=== PATIENT | female | born 1980 | race Hispanic/Latino ===

== ENCOUNTER 2017-01-31 02:02 | Observation (INO) | payer MEDICAID, OTHER ==
[2017-01-31 02:03] VITALS: BMI 23.0
[2017-01-31] MEDS ORDERED: Sodium Chloride 0.9% 1,000 ML IV STA (02:39)
--- NOTE | 2017-01-31 02:42 | ED PDOC ---
HPI: Abdomen Time Seen by Provider: 01/31/17 02:30 Chief Complaint (Nursing): Abdominal Pain Chief Complaint (Provider): abdominal pain History Per: Patient History/Exam Limitations: no limitations Onset/Duration Of Symptoms: Days (3) Current Symptoms Are (Timing): Still Present Location Of Pain/Discomfort: RUQ, RLQ Additional History Per: Patient Additional Complaint(s): 36 y/o female history of migraines, chronic back pain presents with right-sided abdominal pain x 3 days. Patient notes pain to have started in right lower back , and has since been traveling to right side of abdomen. Patient states she was seen at [facility] a few days ago for constipation and the onset of the right lower back pain; was told she may have pulled a muscle straining. Patient states she recently came off of using narcotics for chronic pain, and she has always had constipation as a result of chronic use, last BM yesterday. Patient admits to back pain with constipation, but states pain traveling to abdomen is new. Patient notes 3 episodes of bright red rectal bleeding after straining to have BMs in the last 3 days. Denies fever, nausea/vomiting, dysuria, hematuria, vaginal bleeding/discharge. Past Medical History Reviewed: Historical Data, Nursing Documentation, Vital Signs Vital Signs: Last Vital Signs Temp 98.7 F 01/31/17 02:19 Pulse 89 01/31/17 02:19 Resp 16 01/31/17 02:19 BP 106/66 01/31/17 02:19 Pulse Ox 100 01/31/17 23:44 - Medical History PMH: Asthma, Back Problems (L-Spine disk herniations x2), Fibromyalgia, Fractures (left foot), HTN, Hypothyroidism, Migraine, Chronic Pain (neck, back, right leg) Denies: Arthritis, CHF, COPD, Diabetes (Type II), Hepatitis, HIV, Hypercholesterolemia, Chronic Kidney Disease, Rheumatoid Arthritis, Seizures, Sexually Transmitted Disease - Surgical History Surgical History: Back Surgery (Cervical spine Diskectomy and fusion C5-6) - Family History Family History: States: Unknown Family Hx, MO (maternal grandparents had MO in their 60s), Hypertension - Immunization History Hx Tetanus Toxoid Vaccination: No Hx Influenza Vaccination: No Hx Pneumococcal Vaccination: No - Home Medications Home Medications: Ambulatory Orders Medication Instructions Recorded Topiramate [Topamax] 100 mg PO BID 11/03/16 Gabapentin [Neurontin] 600 mg PO TID #20 tablet 01/02/17 Buprenorphine HCl/Naloxone HCl 1 tab PO BID 01/28/17 [Suboxone 8 mg-2 mg Sl Film] Ibuprofen [Motrin] 600 mg PO Q6 PRN #30 tab 01/28/17 diaZEpam [Valium] 5 mg PO Q8 #20 tab 01/28/17 - Allergies Allergies/Adverse Reactions: Allergies Allergy/AdvReac Type Severity Reaction Status Date / Time clarithromycin [From Biaxin] Allergy NAUSEA Verified 01/28/17 15:45 Penicillins Allergy RASH Verified 01/28/17 15:45 sumatriptan [From Imitrex] AdvReac ANAPHYLAXIS Verified 01/28/17 15:45 sumatriptan succinate AdvReac ANAPHYLAXIS Verified 01/28/17 15:45 [From Imitrex] Review of Systems ROS Statement: Except As Marked, All Systems Reviewed And Found Negative Gastrointestinal: Positive for: Abdominal Pain Physical Exam - Reviewed Nursing Documentation Reviewed: Yes Vital Signs Reviewed: Yes - Physical Exam Appears: Positive for: Well, Non-toxic, No Acute Distress Head Exam: Positive for: ATRAUMATIC, NORMAL INSPECTION, NORMOCEPHALIC Skin: Positive for: Normal Color Eye Exam: Positive for: Normal appearance ENT: Positive for: Normal ENT Inspection Cardiovascular/Chest: Positive for: Regular Rate, Rhythm Respiratory: Positive for: Normal Breath Sounds Gastrointestinal/Abdominal: Positive for: Tenderness (ruq, rlq, right flank) Back: Positive for: R CVA Tenderness, Muscle Spasm (right lspine paraspinals). Negative for: Vertebral Tenderness, Decreased ROM Rectal: Positive for: Stool Is Heme: (neg), Other (exam chaperoned by Gayatri RICHARD) . Negative for: Blood Streaked Stool, Hemorrhoids Extremity: Positive for: Normal ROM Neurologic/Psych: Positive for: Alert, Oriented - Laboratory Results Result Diagrams: 01/31/17 03:05 01/31/17 03:05 - ECG O2 Sat by Pulse Oximetry: 100 - Progress ED Course And Treament: labs, ct abd/pelvis, IV fluids, IV toradol Patient asking nurse for Valium for her muscle spasm and for something for her migraine headache immediately after receiving Toradol injection; was advised to wait until Toradol takes effect. On re-eval, patient still with complaints of pain, rolling about stretcher. Of note, patient was here with her son (who was a patient) before registering herself; noted to be in no distress during that time. Patient looked up in [facility], was prescribed 2 week supply of Suboxone on 01/25. History of drug seeking behavior/dependence as per chart. Valium PO ordered. Patient advised no further pain medication will be given until CT resulted ED OBSERVATION Date of observation admission: 01/31/17 Time of observation admission: 05:00 - Observation admission statement Patient is being placed in observation because:: abdominal pain - Goals of Observation Goals of observation are:: obtain CT abd/pelvis - Progress Note Progress Note: 01/31/17 06:04 EXAM: CT Abdomen and Pelvis With Intravenous Contrast. CLINICAL HISTORY: 36 years old, female; Pain; Abdominal pain; Localized; Right; Prior surgery; Surgery date: 6+ months; Surgery type: ; Additional info: Right-sided abdominal pain TECHNIQUE: Axial computed tomography images of the abdomen and pelvis with intravenous contrast. This CT exam was performed using one or more of the following dose reduction techniques : automated exposure control, adjustment of the mA and/or kV according to patient size, and/ or use of iterative reconstruction technique. Coronal and sagittal reformatted images were created and reviewed. CONTRAST: 95 mL of [id number] administered intravenously. COMPARISON: CT - ABD PELVIS PO IV CONTRAST 10/26/2015 12:51:06 PM FINDINGS: Lower thorax: Minimal atelectasis. Probable small hiatal hernia. ABDOMEN: Liver: Unremarkable. No mass. Gallbladder and bile ducts: No calcified stones. No ductal dilation. Pancreas: No ductal dilation. No mass. Spleen: No splenomegaly. Adrenals: No mass. Kidneys and ureters: No mass. No hydronephrosis. Stomach and bowel: No definite mural thickening. No obstruction. Appendix: No findings to suggest acute appendicitis. PELVIS: Bladder: Unremarkable. Reproductive: 2.0 x 1.8 x 2.0 cm hypodense lesion within RIGHT ovary. Small follicle within LEFT ovary. ABDOMEN and PELVIS: Intraperitoneal space: Trace free fluid within pelvis. No free air. Bones/joints: No acute fracture. Soft tissues: Unremarkable. Vasculature: Unremarkable. No abdominal aortic aneurysm. Lymph nodes: No pathologically enlarged lymph nodes. IMPRESSION: 1. Probable RIGHT ovarian cyst. Consider ultrasound. 2. Incidental/non-acute findings are described above. Patient educated on findings, who is agreeable to have ultrasound at this time. TV u/s ordered Tramadol PO ordered for returning pain. Disposition - Clinical Impression Clinical Impression: Ovarian cyst, Fungal infection - Disposition Disposition: Transfer of Care Disposition Time: 06:12 Condition: STABLE Patient Signed Over To: Mina Hong Handoff Comments: pending u/s
[2017-01-31 02:47] VITALS: BP 106/66; PULSE 89; RESP 16; TEMP 98.7; O2SAT 100
[2017-01-31] MEDS ORDERED: Iohexol 240 (50 ml) PO ONE (02:47)
[2017-01-31 03:04] LABS: RBC URINE 4 /hpf (0-3); URINE BACTERIA RARE (<OCC); URINE BILIRUBIN NEGATIVE (NEGATIVE); URINE BLOOD NEGATIVE (NEGATIVE); URINE COLOR YELLOW (YELLOW); URINE GLUCOSE (UA) NEG (Normal); URINE KETONE TRACE mg/dL (NEGATIVE); URINE LEUKOCYTE ESTERASE NEG Leu/uL (Negative); URINE PROTEIN NEGATIVE (NEGATIVE); URINE UROBILINOGEN 0.2-1.0 mg/dL (0.2-1.0); WBC URINE 7 /hpf (0-5)
[2017-01-31 03:11] LABS: BASO # 0.1 K/uL (0.0-0.2); EOS # 0.4 K/uL (0.0-0.7); EOS % 6.5 % (0.0-4.0); HEMATOCRIT 35.5 % (34.0-47.0); LYMPH # 3.2 K/uL (1.0-4.3); MEAN CELL VOLUME 89.6 fl (81.0-99.0); MEAN CORPUSCULAR HEMOGLOBIN 29.9 pg (27.0-31.0); MEAN CORPUSCULAR HGB CONC 33.3 g/dL (33.0-37.0); MEAN PLATELET VOLUME 8.1 fl (7.2-11.7); MONO # 0.4 K/uL (0.0-0.8); MONO % 6.3 % (0.0-10.0); NEUT # 2.7 K/uL (1.8-7.0); NEUT % 39.2 % (50.0-75.0); RED CELL DISTRIBUTION WIDTH 14.2 % (11.5-14.5); WHITE BLOOD COUNT 6.9 K/uL (4.8-10.8)
[2017-01-31 03:13] LABS: CHLORIDE 107 mmol/L (98-107); SODIUM 145 mmol/l (132-148)
[2017-01-31 03:14] LABS: POTASSIUM 3.8 MMOL/L (3.6-5.0)
[2017-01-31 03:16] LABS: ALB/GLOB RATIO 1.4 (1.0-2.1); ALKALINE PHOSPHATASE 61 U/L (38-126); AST/SGOT 21 U/L (14-36); BILIRUBIN,TOTAL 0.2 mg/dl (0.2-1.3); BLOOD UREA NITROGEN 15 mg/dl (7-17); CARBON DIOXIDE 24 mmol/L (22-30); GFR AFRICAN-AMERICAN > 60; GLUCOSE,RANDOM 79 mg/dL (65-105); TOTAL PROTEIN 6.5 G/DL (6.3-8.2)
[2017-01-31 03:17] LABS: ALT/SGPT 14 U/L (9-52); CALCIUM 8.9 mg/dL (8.4-10.2)
[2017-01-31] MEDS ORDERED: Sodium Chloride 0.9% 50 ML IV ONE (04:55)
[2017-01-31] MEDS ORDERED: Iohexol 300 100 ML IJ ONE (04:55)
--- NOTE | 2017-01-31 05:56 | CT ---
EXAM: CT Abdomen and Pelvis With Intravenous Contrast. CLINICAL HISTORY: 36 years old, female; Pain; Abdominal pain; Localized; Right; Prior surgery; Surgery date: 6+ months; Surgery type: ; Additional info: Right-sided abdominal pain TECHNIQUE: Axial computed tomography images of the abdomen and pelvis with intravenous contrast. This CT exam was performed using one or more of the following dose reduction techniques: automated exposure control, adjustment of the mA and/or kV according to patient size, and/or use of iterative reconstruction technique. Coronal and sagittal reformatted images were created and reviewed. CONTRAST: 95 mL of [id number] administered intravenously. COMPARISON: CT - ABD PELVIS PO IV CONTRAST 10/26/2015 12:51:06 PM FINDINGS: Lower thorax: Minimal atelectasis. Probable small hiatal hernia. ABDOMEN: Liver: Unremarkable. No mass. Gallbladder and bile ducts: No calcified stones. No ductal dilation. Pancreas: No ductal dilation. No mass. Spleen: No splenomegaly. Adrenals: No mass. Kidneys and ureters: No mass. No hydronephrosis. Stomach and bowel: No definite mural thickening. No obstruction. Appendix: No findings to suggest acute appendicitis. PELVIS: Bladder: Unremarkable. Reproductive: 2.0 x 1.8 x 2.0 cm hypodense lesion within RIGHT ovary. Small follicle within LEFT ovary. ABDOMEN and PELVIS: Intraperitoneal space: Trace free fluid within pelvis. No free air. Bones/joints: No acute fracture. Soft tissues: Unremarkable. Vasculature: Unremarkable. No abdominal aortic aneurysm. Lymph nodes: No pathologically enlarged lymph nodes. IMPRESSION: 1. Probable RIGHT ovarian cyst. Consider ultrasound. 2. Incidental/non-acute findings are described above.
--- NOTE | 2017-01-31 06:24 | ED PDOC ---
- Laboratory Results Result Diagrams: 01/31/17 03:05 01/31/17 03:05 - ECG O2 Sat by Pulse Oximetry: 100 Medical Decision Making Medical Decision Making: Case endorsed from Caio Ramirez PA-C at 0600 pending US. Case endorsed to Dr. Christianson at 0700 pending US. Scribe Attestation: Documented by Arpita Covington acting as a scribe for Mina Hong MD. Provider Scribe Attestation: All medical record entries made by the Scribe were at my direction and personally dictated by me. I have reviewed the chart and agree that the record accurately reflects my personal performance of the history, physical exam, medical decision making, and the department course for this patient. I have also personally directed, reviewed, and agree with the discharge instructions and disposition. Disposition - Clinical Impression Clinical Impression: Ovarian cyst, Fungal infection - POA Present On Arrival: None - Disposition Disposition: Transfer of Care Disposition Time: 07:00 Condition: STABLE Patient Signed Over To: David Christianson Handoff Comments: pending US
--- NOTE | 2017-01-31 07:00 | ED PDOC ---
- Laboratory Results Result Diagrams: 01/31/17 03:05 01/31/17 03:05 - ECG O2 Sat by Pulse Oximetry: 100 Medical Decision Making Medical Decision Making: Time:0700 Patient signed out by Dr. Hong pending U/S Time: 0950 U/S results reviewed HISTORY: Right side pain, ovarian cyst on CT COMPARISON: None available. TECHNIQUE: Transvaginal pelvic ultrasound was performed. FINDINGS: UTERUS: Measures 9.6 x 5.9 x 4.5 cm. Anteverted and normal in size and appearance. No fibroid or other mass lesion seen. ENDOMETRIUM: Measures 5 mm in diameter. There is a 4 mm submucosal cyst in the anterior wall of the fundus. CERVIX: There are multiple nabothian cysts. RIGHT OVARY: Measures 3.2 x 3.0 x 2.3 cm. No solid mass. Normal flow. There is a 2.0 cm simple cyst. LEFT OVARY: Measures 2.1 x 1.9 x 1.8 cm. No solid mass. Normal flow. There is a 1.2 cm simple cyst. FREE FLUID: No significant free fluid noted. OTHER FINDINGS: None. IMPRESSION: 1. 2.0 cm simple cyst in the right ovary. 2. 4 mm submucosal cyst in the anterior wall of the fundus of the uterus. Scribe Attestation: Documented by Lauren Mead acting as a scribe for David Christianson MD, MD Scribe Attestation: All medical record entries made by the Scribe were at my direction and personally dictated by me. I have reviewed the chart and agree that the record accurately reflects my personal performance of the history, physical exam, medical decision making, and the department course for this patient. I have also personally directed, reviewed, and agree with the discharge instructions and disposition. Disposition - Clinical Impression Clinical Impression: Ovarian cyst, Fungal infection - POA Present On Arrival: None - Disposition Disposition: Routine/Home Disposition Time: 09:50 Condition: STABLE
--- NOTE | 2017-01-31 09:48 | US ---
HISTORY: Right side pain, ovarian cyst on CT COMPARISON: None available. TECHNIQUE: Transvaginal pelvic ultrasound was performed. FINDINGS: UTERUS: Measures 9.6 x 5.9 x 4.5 cm. Anteverted and normal in size and appearance. No fibroid or other mass lesion seen. ENDOMETRIUM: Measures 5 mm in diameter. There is a 4 mm submucosal cyst in the anterior wall of the fundus. CERVIX: There are multiple nabothian cysts. RIGHT OVARY: Measures 3.2 x 3.0 x 2.3 cm. No solid mass. Normal flow. There is a 2.0 cm simple cyst. LEFT OVARY: Measures 2.1 x 1.9 x 1.8 cm. No solid mass. Normal flow. There is a 1.2 cm simple cyst. FREE FLUID: No significant free fluid noted. OTHER FINDINGS: None. IMPRESSION: 1. 2.0 cm simple cyst in the right ovary. 2. 4 mm submucosal cyst in the anterior wall of the fundus of the uterus.
[2017-01-31] MEDS ORDERED: Fluconazole 150 MG TAB PO ONE (10:00)
== END 2017-01-31 09:56 | disposition home or self-care (01) ==
LOC: H.ER 02:02 → H.EROBSV 05:00
PROVIDERS: ADMIT Emergency Medicine; ATTEND Emergency Medicine
DX: N83.201 Unspecified ovarian cyst, right side (principal); B49 Unspecified mycosis; I10 Essential (primary) hypertension; J45.909 Unspecified asthma, uncomplicated; K59.03 Drug induced constipation; T40.605A Adverse effect of unspecified narcotics, initial encounter

== ENCOUNTER 2017-10-05 14:12 | Emergency (ER) | payer OTHER ==
[2017-10-05 14:12] VITALS: BMI 22.6
[2017-10-05 14:22] VITALS: BP 127/79; PULSE 84; RESP 16; TEMP 98; O2SAT 98
[2017-10-05] MEDS ORDERED: Sodium Chloride 0.9% 1,000 ML IV STA (14:35)
--- NOTE | 2017-10-05 14:44 | ED PDOC ---
HPI: Abdomen Time Seen by Provider: 10/05/17 14:24 Chief Complaint (Nursing): Abdominal Pain Chief Complaint (Provider): Abdominal Pain History Per: Patient History/Exam Limitations: no limitations Onset/Duration Of Symptoms: Days (x2) Current Symptoms Are (Timing): Still Present Additional Complaint(s): Mary Anne Seals is a 37 year old female that presents to the ED with a chief complaint of abdominal pain that she has been experiencing for the past few days. Patient reports that she has also had associated spasms in her extremities , for which she took a Valium. She denies any fever, nausea, vomiting, or genitourinary symptoms, and reports that her last bowel movement was today. Patient states that she typically has intermittent diarrhea and constipation. Of Note: No history of abdominal surgeries. Past Medical History Reviewed: Historical Data, Nursing Documentation, Vital Signs Vital Signs: Last Vital Signs Temp 98.0 F 10/05/17 14:21 Pulse 84 10/05/17 14:21 Resp 16 10/05/17 14:21 BP 127/79 10/05/17 14:21 Pulse Ox 98 10/05/17 14:48 - Medical History PMH: Asthma, Back Problems, Fibromyalgia, Fractures (left foot), HTN, Hypothyroidism, Migraine, Chronic Pain (neck, back, right leg) Denies: Arthritis, CHF, COPD, Diabetes, Hepatitis, HIV, Hypercholesterolemia , Chronic Kidney Disease, Rheumatoid Arthritis, Seizures, Sexually Transmitted Disease - Surgical History Surgical History: Back Surgery (Cervical spine Diskectomy and fusion C5-6) - Family History Family History: States: Unknown Family Hx, MA (maternal grandparents had MA in their 60s), Hypertension - Immunization History Hx Tetanus Toxoid Vaccination: No Hx Influenza Vaccination: No Hx Pneumococcal Vaccination: No - Home Medications Home Medications: Ambulatory Orders Medication Instructions Recorded Topiramate [Topamax] 100 mg PO BID 11/03/16 Gabapentin [Neurontin] 600 mg PO TID #20 tablet 01/02/17 Docusate [Colace] 100 mg PO BID PRN #24 cap 03/24/17 hydroCHLOROthiazide [Hydrodiuril] 1 tab PO DAILY 03/24/17 Lactulose 20 gm PO BID PRN #1 bottle 04/12/17 diaZEpam [Valium] 1 tab PO PRN PRN 07/25/17 oxyCODONE [oxycodone Hydrochloride] 10 mg PO TID 07/25/17 - Allergies Allergies/Adverse Reactions: Allergies Allergy/AdvReac Type Severity Reaction Status Date / Time clarithromycin [From Biaxin] Allergy NAUSEA Verified 10/05/17 14:19 Penicillins Allergy RASH Verified 10/05/17 14:19 sumatriptan [From Imitrex] AdvReac ANAPHYLAXIS Verified 10/05/17 14:19 sumatriptan succinate AdvReac ANAPHYLAXIS Verified 10/05/17 14:19 [From Imitrex] Review of Systems Constitutional: Negative for: Fever Gastrointestinal: Positive for: Abdominal Pain, Diarrhea, Constipation. Negative for: Nausea, Vomiting Genitourinary Female: Negative for: Dysuria, Frequency, Incontinence, Hematuria , Vaginal Discharge, Vaginal Bleeding Physical Exam - Reviewed Nursing Documentation Reviewed: Yes Vital Signs Reviewed: Yes - Physical Exam Appears: Positive for: Non-toxic, No Acute Distress Head Exam: Positive for: ATRAUMATIC, NORMOCEPHALIC Skin: Positive for: Normal Color, Warm Eye Exam: Positive for: Normal appearance, EOMI, PERRL Neck: Positive for: Normal, Supple Cardiovascular/Chest: Positive for: Regular Rate, Rhythm. Negative for: Murmur Respiratory: Positive for: Normal Breath Sounds. Negative for: Wheezing Gastrointestinal/Abdominal: Positive for: Tenderness (mild generalized TTP). Negative for: Normal Exam, Guarding, Rebound Back: Positive for: Normal Inspection. Negative for: L CVA Tenderness, R CVA Tenderness Extremity: Negative for: Normal ROM, Deformity, Swelling Neurologic/Psych: Positive for: Alert, Oriented. Negative for: Motor/Sensory Deficits - ECG O2 Sat by Pulse Oximetry: 98 (RA) Pulse Ox Interpretation: Normal Medical Decision Making Medical Decision Making: Impression: Abdominal Pain Plan: * CMP * CBC * Urine preg * Urine dip * Urine drug screen * Urinalysis * NaCl 1000 mLs at 1000 mls/hr * Bentyl 20 mg PO * Reevaluation Reviewed old charts, patient had CT Abd/Pelvis in March 2017, which was normal. 15:00 Patient signed out to Dr. Moreno pending ER workup, reassessment, and final ER disposition. Scribe Attestation: Documented by Meri Montelongo, acting as a scribe for Michelle Paulson MD. Provider Scribe Attestation: All medical record entries made by the Scribe were at my direction and personally dictated by me. I have reviewed the chart and agree that the record accurately reflects my personal performance of the history, physical exam, medical decision making, and the department course for this patient. I have also personally directed, reviewed, and agree with the discharge instructions and disposition. Disposition - Clinical Impression Clinical Impression: Abdominal pain - Disposition Disposition: Transfer of Care Disposition Time: 15:00 Condition: FAIR Forms: [employer] (Pashto) Patient Signed Over To: Tana Moreno
[2017-10-05 15:05] LABS: RBC URINE < 1 /hpf (0-3); URINE BILIRUBIN NEGATIVE (NEGATIVE); URINE BLOOD NEGATIVE (NEGATIVE); URINE COLOR STRAW (YELLOW); URINE GLUCOSE (UA) 50 mg/dL (Normal); URINE KETONE NEGATIVE (NEGATIVE); URINE LEUKOCYTE ESTERASE NEG Leu/uL (Negative); URINE PROTEIN NEGATIVE (NEGATIVE); URINE UROBILINOGEN 0.2-1.0 mg/dL (0.2-1.0); WBC URINE 1 /hpf (0-5)
--- NOTE | 2017-10-05 15:07 | ED PDOC ---
- Laboratory Results Result Diagrams: 10/05/17 15:00 10/05/17 15:00 - ECG O2 Sat by Pulse Oximetry: 98 (RA) Medical Decision Making Medical Decision Makin:00 Patient signed out to me by Dr. Paulson pending ER workup, reassessment, and final ER disposition. Labs unremarkable. Accession No. : [id number] Patient Name / ID : ELIJAH CARLTON / [id number] Exam Date : 10/05/2017 16:37:01 ( Approved ) Study Comment : Sex / Age : F / 37Y Creator : Charan Castellano MD Dictator : Charan Castellano MD Glass Handler : Passenger Rate Clerk : Charan Castellano MD Approver2 : Report Date : 10/05/2017 17:27:04 My Comment : HISTORY: abdominal pain h/o ovarian cyst COMPARISON: None available. TECHNIQUE: Transabdominal and transvaginal pelvic ultrasound was performed with longitudinal and transverse images submitted for interpretation. FINDINGS: UTERUS: Measures 7.9 x 4.5 x 3.3 cm. The uterus appears anteverted, normal in size and appearance. No fibroid or other mass lesion seen. ENDOMETRIUM: Measures 3.4 mm in diameter. Unremarkable. CERVIX: No cervical abnormality identified. RIGHT OVARY: Measures 3.4 x 4.6 x 2.4 cm. A 2.76 x 1.9 x 2.9 cm cysts is identified which appears simple but enlarges the right ovary mildly. No solid lesions identified.Normal flow. LEFT OVARY: Measures 2.6 x 2.0 x 1.1 cm. No solid mass. Normal flow. FREE FLUID: No significant free fluid noted. OTHER FINDINGS: None. IMPRESSION: A 2.8 cm simple cyst identified at the right ovary with exam otherwise unremarkable appearing. No suspicious left adnexal findings in the uterus and cervix as well as endometrium appear unremarkable. Accession No. : [id number] Patient Name / ID : ELIJAH CARLTON / [id number] Exam Date : 10/05/2017 16:46:27 ( Approved ) Study Comment : Sex / Age : F / 37Y Creator : Charan Castellano MD Dictator : Charan Castellano MD Glass Handler : Passenger Rate Clerk : Charan Castellano MD Approver2 : Report Date : 10/05/2017 17:29:41 My Comment : HISTORY: abdominal pain COMPARISON: None. TECHNIQUE: Sonographic evaluation of the abdomen. FINDINGS: LIVER: Measures 17.4 cm. Normal echogenicity of the liver parenchyma. The liver is borderline enlarged with a Carter's lobe extending anterior and inferior to the right kidney. GALLBLADDER: Unremarkable. No gallstones. COMMON BILE DUCT: Measures 4.4 mm. No stones. No dilatation. PANCREAS: Unremarkable as visualized. No mass. No ductal dilatation. RIGHT KIDNEY: Measures 9.5 x 4.3 x 4.4cm. Normal echogenicity. No calculus, mass, or hydronephrosis. LEFT KIDNEY: Measures 10.6 x 4.2 x 5.2cm. Normal echogenicity. No calculus, mass, or hydronephrosis. SPLEEN: Normal in size and contour. No mass. AORTA: No aneurysmal dilatation. IVC: Unremarkable. OTHER FINDINGS: None. IMPRESSION: Borderline hepatomegaly. No discrete mass or biliary tree dilatation associated. Remainder of the examination is unremarkable. DW pt findings and plan of care. Pt to f/u with protein scientist. Scribe Attestation: Documented by Meri Montelongo, acting as a scribe for Tana Moreno MD. Provider Scribe Attestation: All medical record entries made by the Scribe were at my direction and personally dictated by me. I have reviewed the chart and agree that the record accurately reflects my personal performance of the history, physical exam, medical decision making, and the department course for this patient. I have also personally directed, reviewed, and agree with the discharge instructions and disposition. Disposition Counseled Patient/Family Regarding: Studies Performed, Diagnosis, Need For Followup, Rx Given - Clinical Impression Clinical Impression: Abdominal pain, Ovarian cyst - POA Present On Arrival: None - Disposition Referrals: [facility] [Outside] Disposition: Routine/Home Disposition Time: 18:04 Condition: FAIR Forms: [facility] (Lithuanian)
[2017-10-05 15:09] LABS: BASO # 0.1 K/uL (0.0-0.2); BASO % 0.9 % (0.0-2.0); EOS % 0.4 % (0.0-4.0); HEMATOCRIT 41.9 % (34.0-47.0); LYMPH # 1.9 K/uL (1.0-4.3); LYMPH % 19.3 % (20.0-40.0); MEAN CELL VOLUME 94.1 fl (81.0-99.0); MEAN CORPUSCULAR HEMOGLOBIN 30.7 pg (27.0-31.0); MEAN CORPUSCULAR HGB CONC 32.6 g/dL (33.0-37.0); MEAN PLATELET VOLUME 7.7 fl (7.2-11.7); MONO # 0.6 K/uL (0.0-0.8); MONO % 6.3 % (0.0-10.0); NEUT # 7.1 K/uL (1.8-7.0); NEUT % 73.1 % (50.0-75.0); WHITE BLOOD COUNT 9.7 K/uL (4.8-10.8)
[2017-10-05 15:18] LABS: ALB/GLOB RATIO 1.5 (1.0-2.1); ALKALINE PHOSPHATASE 51 U/L (38-126); ALT/SGPT 23 U/L (9-52); AST/SGOT 20 U/L (14-36); BILIRUBIN,TOTAL 0.4 mg/dl (0.2-1.3); BLOOD UREA NITROGEN 19 mg/dl (7-17); CALCIUM 9.1 mg/dL (8.4-10.2); CARBON DIOXIDE 24 mmol/L (22-30); CHLORIDE 110 mmol/L (98-107); GFR AFRICAN-AMERICAN > 60; GLUCOSE,RANDOM 113 mg/dL (65-105); POTASSIUM 3.7 MMOL/L (3.6-5.0); SODIUM 144 mmol/l (132-148); TOTAL PROTEIN 7.1 G/DL (6.3-8.2)
--- NOTE | 2017-10-05 17:28 | US ---
HISTORY: abdominal pain h/o ovarian cyst COMPARISON: None available. TECHNIQUE: Transabdominal and transvaginal pelvic ultrasound was performed with longitudinal and transverse images submitted for interpretation. FINDINGS: UTERUS: Measures 7.9 x 4.5 x 3.3 cm. The uterus appears anteverted, normal in size and appearance. No fibroid or other mass lesion seen. ENDOMETRIUM: Measures 3.4 mm in diameter. Unremarkable. CERVIX: No cervical abnormality identified. RIGHT OVARY: Measures 3.4 x 4.6 x 2.4 cm. A 2.76 x 1.9 x 2.9 cm cysts is identified which appears simple but enlarges the right ovary mildly. No solid lesions identified.Normal flow. LEFT OVARY: Measures 2.6 x 2.0 x 1.1 cm. No solid mass. Normal flow. FREE FLUID: No significant free fluid noted. OTHER FINDINGS: None. IMPRESSION: A 2.8 cm simple cyst identified at the right ovary with exam otherwise unremarkable appearing. No suspicious left adnexal findings in the uterus and cervix as well as endometrium appear unremarkable.
--- NOTE | 2017-10-05 17:31 | US ---
HISTORY: abdominal pain COMPARISON: None. TECHNIQUE: Sonographic evaluation of the abdomen. FINDINGS: LIVER: Measures 17.4 cm. Normal echogenicity of the liver parenchyma. The liver is borderline enlarged with a Carter's lobe extending anterior and inferior to the right kidney. GALLBLADDER: Unremarkable. No gallstones. COMMON BILE DUCT: Measures 4.4 mm. No stones. No dilatation. PANCREAS: Unremarkable as visualized. No mass. No ductal dilatation. RIGHT KIDNEY: Measures 9.5 x 4.3 x 4.4cm. Normal echogenicity. No calculus, mass, or hydronephrosis. LEFT KIDNEY: Measures 10.6 x 4.2 x 5.2cm. Normal echogenicity. No calculus, mass, or hydronephrosis. SPLEEN: Normal in size and contour. No mass. AORTA: No aneurysmal dilatation. IVC: Unremarkable. OTHER FINDINGS: None. IMPRESSION: Borderline hepatomegaly. No discrete mass or biliary tree dilatation associated. Remainder of the examination is unremarkable.
== END 2017-10-05 19:14 | disposition home or self-care (01) ==
LOC: H.ER 14:12
DX: N83.201 Unspecified ovarian cyst, right side (principal)
CPT/HCPCS: 76700; 76856; 80053; 80324; 80345; 80346; 80349; 80353; 80358; 80361; 81003; 81025; 83992; 85025; 99283; J7040

== ENCOUNTER 2017-12-02 20:51 | Emergency (ER) | payer OTHER ==
[2017-12-02 20:52] VITALS: BMI 22.6
[2017-12-02 21:10] VITALS: O2SAT 99
[2017-12-02] MEDS ORDERED: Lactated Ringer's 1,000 ML IV STA (22:17)
--- NOTE | 2017-12-02 22:26 | ED PDOC ---
Syncope/Near Syncope/Dizziness Time Seen by Provider: 12/02/17 21:56 Chief Complaint (Nursing): Dizziness/Lightheaded Chief Complaint (Provider): Dizziness/Lightheaded History Per: Patient History/Exam Limitations: no limitations Onset/Duration Of Symptoms: Days (x2) Current Symptoms Are (Timing): Still Present Additional Complaint(s): 37 year old female who presents to the emergency department with a complaint of dizziness associated with frontal headache, facial tingling sensation, right ear fullness, imbalance exasperated with walking, nausea, abdominal pain, constipation and seeing floaters bilaterally ongoing since last night. Denied any hearing loss, vomiting, diarrhea, fever, chills, cough or focal weakness. PMD: Renaldo Kiran MD Past Medical History Reviewed: Historical Data, Nursing Documentation, Vital Signs Vital Signs: Last Vital Signs Temp 98.0 F 12/02/17 21:06 Pulse 71 12/02/17 21:06 Resp 18 12/02/17 21:06 BP 118/83 12/02/17 21:06 Pulse Ox 99 12/02/17 21:06 - Medical History PMH: Asthma, Back Problems, Fibromyalgia, Fractures (left foot), HTN, Hypothyroidism, Migraine, Chronic Pain (neck, back, right leg) Denies: Arthritis, CHF, COPD, Diabetes, Hepatitis, HIV, Hypercholesterolemia , Chronic Kidney Disease, Rheumatoid Arthritis, Seizures, Sexually Transmitted Disease - Surgical History Surgical History: Back Surgery (Cervical spine Diskectomy and fusion C5-6) - Family History Family History: States: Unknown Family Hx, [place] (maternal grandparents had [place] in their 60s), Hypertension - Social History Current smoker - smoking cessation education provided: Yes Alcohol: None Drugs: Denies - Immunization History Hx Tetanus Toxoid Vaccination: No Hx Influenza Vaccination: No Hx Pneumococcal Vaccination: No - Home Medications Home Medications: Ambulatory Orders Medication Instructions Recorded Topiramate [Topamax] 100 mg PO BID 11/03/16 Gabapentin [Neurontin] 600 mg PO TID #20 tablet 01/02/17 Docusate [Colace] 100 mg PO BID PRN #24 cap 03/24/17 hydroCHLOROthiazide [Hydrodiuril] 1 tab PO DAILY 03/24/17 Lactulose 20 gm PO BID PRN #1 bottle 04/12/17 diaZEpam [Valium] 1 tab PO PRN PRN 07/25/17 oxyCODONE [oxycodone Hydrochloride] 10 mg PO TID 07/25/17 Naproxen [Naprosyn] 1 tab PO BID PRN #30 tab 10/05/17 - Allergies Allergies/Adverse Reactions: Allergies Allergy/AdvReac Type Severity Reaction Status Date / Time clarithromycin [From Biaxin] Allergy NAUSEA Verified 12/02/17 21:10 Penicillins Allergy RASH Verified 12/02/17 21:10 sumatriptan [From Imitrex] AdvReac ANAPHYLAXIS Verified 12/02/17 21:10 sumatriptan succinate AdvReac ANAPHYLAXIS Verified 12/02/17 21:10 [From Imitrex] Review of Systems ROS Statement: Except As Marked, All Systems Reviewed And Found Negative Constitutional: Negative for: Fever, Chills Eyes: Positive for: Vision Change (floaters bilaterally) ENT: Positive for: Ear Pain (right-sided fullness). Negative for: Other ( bilateral hearing loss) Respiratory: Negative for: Cough Gastrointestinal: Positive for: Nausea, Abdominal Pain, Constipation (chronic). Negative for: Vomiting, Diarrhea Neurological: Positive for: Incoordination (inbalance), Headache (frontal), Dizziness, Other (facial paresthesia). Negative for: Weakness (focal) Physical Exam - Reviewed Nursing Documentation Reviewed: Yes Vital Signs Reviewed: Yes - Physical Exam Appears: Positive for: Non-toxic, In Acute Distress (tired appearing, mild painful distress) Head Exam: Positive for: ATRAUMATIC, NORMOCEPHALIC Skin: Positive for: Warm, Dry Eye Exam: Positive for: EOMI, PERRL ENT: Positive for: TM Is/Are (clear bilaterally). Negative for: Pharyngeal Erythema, Tonsillar Exudate Neck: Positive for: Painless ROM, Supple Cardiovascular/Chest: Positive for: Regular Rate, Rhythm, Chest Non Tender. Negative for: Murmur Respiratory: Positive for: Normal Breath Sounds. Negative for: Respiratory Distress Gastrointestinal/Abdominal: Positive for: Soft, Tenderness (mild LLQ) Back: Positive for: Normal Inspection. Negative for: Decreased ROM Extremity: Positive for: Normal ROM. Negative for: Deformity Lymphatic: Negative for: Adenopathy Neurologic/Psych: Positive for: Alert, Oriented (x3), Other ([place] Hallpike testing increases symptoms). Negative for: Motor/Sensory Deficits - Laboratory Results Result Diagrams: 12/02/17 22:29 12/02/17 22:29 - ECG O2 Sat by Pulse Oximetry: 99 (RA) Pulse Ox Interpretation: Normal Medical Decision Making Medical Decision Making: Initial Impression: Dizziness Differential Diagnosis: Vertigo; electrolyte abnormality; dehydration; constipation; migraine Initial Plan: * EKG * CMP * Drug screen, urine * Lipase * Magnesium * Phosphorous * TSH * Urine * Urine dipstick * CBC * Xray obstructive series * Antivert 50mg PO * Lactated Ringers 1,000ml IV per 150mls/hr * Zofran inj 8mg IV * Xray hip (right) Time: 00:00 --RIGHT hip xray: No acute abnormalities. --Labs unremarkable. On reevaluation pt reports dizziness slightly better, but headache persists --Patient endorsed to Dr. Hong pending reevaluation. Scribe Attestation: Documented by Carmelina Sommer and Tony Taveras, acting as a scribe for Tana Moreno MD. Provider Scribe Attestation: All medical record entries made by the Scribe were at my direction and personally dictated by me. I have reviewed the chart and agree that the record accurately reflects my personal performance of the history, physical exam, medical decision making, and the department course for this patient. I have also personally directed, reviewed, and agree with the discharge instructions and disposition. Disposition - Clinical Impression Clinical Impression: Dizziness, Migraine - Patient ED Disposition Is Patient to be Admitted: Transfer of Care - Disposition Disposition: Transfer of Care Disposition Time: 00:00 Condition: STABLE Patient Signed Over To: Mina Hong Handoff Comments: pending reeval
[2017-12-02 22:34] LABS: BASO # 0.1 K/uL (0.0-0.2); EOS # 0.6 K/uL (0.0-0.7); EOS % 7.9 % (0.0-4.0); HEMOGLOBIN 14.2 g/dL (12.0-16.0); LYMPH # 3.2 K/uL (1.0-4.3); LYMPH % 42.7 % (20.0-40.0); MEAN CELL VOLUME 94.9 fl (81.0-99.0); MEAN CORPUSCULAR HEMOGLOBIN 31.4 pg (27.0-31.0); MEAN CORPUSCULAR HGB CONC 33.1 g/dL (33.0-37.0); MONO # 0.5 K/uL (0.0-0.8); NEUT # 3.1 K/uL (1.8-7.0); NEUT % 41.4 % (50.0-75.0); NRBC % 0.3 % (0.0-0.0); RBC 4.52 Mil/uL (3.80-5.20); RED CELL DISTRIBUTION WIDTH 14.1 % (11.5-14.5); WHITE BLOOD COUNT 7.6 K/uL (4.8-10.8)
[2017-12-02 22:48] LABS: BARBITURATES, UR NEGATIVE (NEGATIVE); PHENCYCLIDINE, UR NEGATIVE (NEGATIVE)
[2017-12-02 23:17] LABS: ALB/GLOB RATIO 1.5 (1.0-2.1); ALBUMIN 4.5 g/dL (3.5-5.0); ALT/SGPT 19 U/L (9-52); AST/SGOT 25 U/L (14-36); BENZODIAZEPINES, UR POSITIVE (NEGATIVE); BLOOD UREA NITROGEN 12 mg/dl (7-17); CALCIUM 9.4 mg/dL (8.4-10.2); GFR AFRICAN-AMERICAN > 60; GFR NON-AFRICAN AMERICAN > 60; LIPASE 37 U/L (23-300); MAGNESIUM 2.2 MG/DL (1.6-2.3); OPIATES, UR POSITIVE (NEGATIVE)
[2017-12-02] MEDS ORDERED: DiphenhydrAMINE 50 mg/ml Inj IVP STA (23:51)
--- NOTE | 2017-12-03 00:31 | ED PDOC ---
- Laboratory Results Result Diagrams: 12/02/17 22:29 12/02/17 22:29 - ECG O2 Sat by Pulse Oximetry: 99 (RA) Medical Decision Making Medical Decision Making: Time: 00:00 --Patient signed over to me by Dr. Moreno pending reevaluation. Time: 01:15 --Upon provider evaluation patient reports improvement of symptoms, is medically stable, and requires no further treatment in the ED at this time. Counseling was provided and all questions were answered regarding diagnosis and need for follow up with PMD. There is agreement to discharge plan. Return if symptoms persist or worsen. Scribe Attestation: Documented by Tony Taveras, acting as a scribe for Mina Hong MD. Provider Scribe Attestation: All medical record entries made by the Scribe were at my direction and personally dictated by me. I have reviewed the chart and agree that the record accurately reflects my personal performance of the history, physical exam, medical decision making, and the department course for this patient. I have also personally directed, reviewed, and agree with the discharge instructions and disposition. Disposition Counseled Patient/Family Regarding: Studies Performed, Diagnosis, Need For Followup - Clinical Impression Clinical Impression: Dizziness, Migraine - POA Present On Arrival: None - Disposition Disposition: Routine/Home Disposition Time: :15 Condition: STABLE Instructions: Migraine Headache (ED) Forms: [employer] (Portuguese)
[2017-12-03] MEDS ORDERED: Promethazine 25 MG in Sodium Chloride 0.9% 50 ML IV ONE (00:45)
[2017-12-03 01:24] VITALS: BP 110/74; PULSE 75; RESP 16; TEMP 98.4
--- NOTE | 2017-12-03 09:51 | RAD ---
PROCEDURE: Right Hip Radiographs. HISTORY: hip pain COMPARISON: CT scan of the abdomen pelvis dated 01/31/2017. FINDINGS: BONES: Normal. No fracture. JOINTS: Normal. SOFT TISSUES: Normal. OTHER FINDINGS: None. IMPRESSION: Normal radiographs of right hip.
--- NOTE | 2017-12-03 09:54 | RAD ---
PROCEDURE: Radiographs of the chest and abdomen (obstructive series) HISTORY: abd pain r/o sbo COMPARISON: CT scan of the abdomen and pelvis dated 01/31/2017 ; chest radiograph dated 12/13/2016. TECHNIQUE: AP radiograph of the chest, with upright and supine radiographs of the abdomen. FINDINGS: CHEST: Lungs: Clear. Cardiovascular: Normal size heart. No pulmonary vascular congestion. Pleura: No pleural fluid. No pneumothorax. Other findings: None. ABDOMEN AND PELVIS: Bowel: Unremarkable bowel gas pattern. No evidence of mechanical obstruction. Free air: None. Bones: Unremarkable. Other findings: None. IMPRESSION: Unremarkable radiographs of chest and abdomen. No evidence of mechanical bowel obstruction.
--- NOTE | 2017-12-03 21:48 | CARD ---
APPROVED REPORT EKG Measurement Heart [id number] <Conclusion> Sinus bradycardia Otherwise normal ECG
== END 2017-12-03 00:50 | disposition home or self-care (01) ==
LOC: H.ER 20:51
DX: G43.909 Migraine, unspecified, not intractable, without status migrainosus (principal); R20.2 Paresthesia of skin; E03.9 Hypothyroidism, unspecified; I10 Essential (primary) hypertension; M79.7 Fibromyalgia; G89.29 Other chronic pain; Z88.0 Allergy status to penicillin; J45.909 Unspecified asthma, uncomplicated
CPT/HCPCS: 73502; 74022; 80053; 80324; 80345; 80346; 80349; 80353; 80358; 80361; 81025; 83690; 83735; 83992; 84100; 84443; 85025; 93005; 96374; 96375; 99284; J1200; J1885; J2405; J2550; J7120

== ENCOUNTER 2017-12-12 18:39 | Emergency (ER) | payer OTHER ==
[2017-12-12 18:40] VITALS: BMI 22.6
[2017-12-12 18:58] VITALS: BP 130/77; PULSE 60; RESP 18; TEMP 98.4; O2SAT 99
[2017-12-12] MEDS ORDERED: DiphenhydrAMINE 50 mg/ml Inj IV STA (20:12)
[2017-12-12 20:55] LABS: BASO # 0.1 K/uL (0.0-0.2); BASO % 0.8 % (0.0-2.0); EOS # 0.2 K/uL (0.0-0.7); EOS % 1.4 % (0.0-4.0); LYMPH # 3.5 K/uL (1.0-4.3); LYMPH % 27.8 % (20.0-40.0); MEAN CELL VOLUME 94.5 fl (81.0-99.0); MEAN CORPUSCULAR HEMOGLOBIN 30.8 pg (27.0-31.0); MEAN CORPUSCULAR HGB CONC 32.6 g/dL (33.0-37.0); MEAN PLATELET VOLUME 7.6 fl (7.2-11.7); MONO # 0.9 K/uL (0.0-0.8); MONO % 6.8 % (0.0-10.0); NEUT % 63.2 % (50.0-75.0); NRBC % 0.1 % (0.0-0.0); RBC 4.24 Mil/uL (3.80-5.20); RED CELL DISTRIBUTION WIDTH 13.4 % (11.5-14.5); WHITE BLOOD COUNT 12.7 K/uL (4.8-10.8)
[2017-12-12] MEDS ORDERED: DiphenhydrAMINE 50 mg/ml Inj ONE (20:58)
[2017-12-12 21:09] LABS: BLOOD UREA NITROGEN 24 mg/dl (7-17); CALCIUM 9.3 mg/dL (8.4-10.2); GFR AFRICAN-AMERICAN > 60; GFR NON-AFRICAN AMERICAN > 60
[2017-12-12 21:15] LABS: SQUAMOUS EPITHIAL 19 /hpf (0-5); URINE BACTERIA RARE (<OCC); URINE BILIRUBIN NEGATIVE (NEGATIVE); URINE BLOOD NEGATIVE (NEGATIVE); URINE CLARITY CLOUDY (Clear); URINE COLOR YELLOW (YELLOW); URINE GLUCOSE (UA) NEG (Normal); URINE LEUKOCYTE ESTERASE NEG Leu/uL (Negative); URINE NITRATE NEGATIVE (NEGATIVE); URINE PROTEIN NEGATIVE (NEGATIVE); URINE UROBILINOGEN 0.2-1.0 mg/dL (0.2-1.0)
--- NOTE | 2017-12-12 22:02 | ED PDOC ---
HPI: General Adult Time Seen by Provider: 12/12/17 19:28 Chief Complaint (Nursing): Chest Pain Chief Complaint (Provider): Neck Pain History Per: Patient History/Exam Limitations: no limitations Onset/Duration Of Symptoms: Days (x1 week) Current Symptoms Are (Timing): Still Present Additional Complaint(s): 37 year old female with a past medical history of chronic neck and back pain, migraines, cervical effusion (2014), and HTN, who presents to the ED complaining of right arm numbness and tingling and neck pain x1 week. Reports that she's recently had right sided neck pain that radiates to her arm. Also reports that she's been awoken at night by a spasm sensation of her right arm at times. States she's taking medication for pain management as prescribed by Dr. Barrera in [place]. Reports aking Oxycodone 3 times a day, Amitriptyline, Hydrochlorothiazide, and Topamax. Reports recently being started on Valium for spasms, but denies improvement of her symptoms. PMD: Renaldo Kiran Past Medical History Vital Signs: Last Vital Signs Temp 98.4 F 12/12/17 18:55 Pulse 60 12/12/17 18:55 Resp 18 12/12/17 18:55 BP 130/77 12/12/17 18:55 Pulse Ox 99 12/12/17 22:08 - Medical History PMH: Asthma, Back Problems, Fibromyalgia, Fractures (left foot), HTN, Hypothyroidism, Migraine, Chronic Pain (neck, back, right leg) Denies: Arthritis, CHF, COPD, Diabetes, Hepatitis, HIV, Hypercholesterolemia , Chronic Kidney Disease, Rheumatoid Arthritis, Seizures, Sexually Transmitted Disease - Surgical History Surgical History: Back Surgery (Cervical spine Diskectomy and fusion C5-6) - Family History Family History: States: Unknown Family Hx, [place] (maternal grandparents had [place] in their 60s), Hypertension - Social History Current smoker - smoking cessation education provided: No Alcohol: None Drugs: Denies - Immunization History Hx Tetanus Toxoid Vaccination: No Hx Influenza Vaccination: No Hx Pneumococcal Vaccination: No - Home Medications Home Medications: Ambulatory Orders Medication Instructions Recorded Topiramate [Topamax] 100 mg PO BID 11/03/16 Gabapentin [Neurontin] 600 mg PO TID #20 tablet 01/02/17 Docusate [Colace] 100 mg PO BID PRN #24 cap 03/24/17 hydroCHLOROthiazide [Hydrodiuril] 1 tab PO DAILY 03/24/17 Lactulose 20 gm PO BID PRN #1 bottle 04/12/17 diaZEpam [Valium] 1 tab PO PRN PRN 07/25/17 oxyCODONE [oxycodone Hydrochloride] 10 mg PO TID 07/25/17 Naproxen [Naprosyn] 1 tab PO BID PRN #30 tab 10/05/17 - Allergies Allergies/Adverse Reactions: Allergies Allergy/AdvReac Type Severity Reaction Status Date / Time clarithromycin [From Biaxin] Allergy NAUSEA Verified 12/12/17 18:55 Penicillins Allergy RASH Verified 12/12/17 18:55 sumatriptan [From Imitrex] AdvReac ANAPHYLAXIS Verified 12/12/17 18:55 sumatriptan succinate AdvReac ANAPHYLAXIS Verified 12/12/17 18:55 [From Imitrex] Review of Systems ROS Statement: Except As Marked, All Systems Reviewed And Found Negative (as per HPI) Musculoskeletal: Positive for: Neck Pain, Arm Pain (right) Neurological: Positive for: Numbness Physical Exam - Reviewed Nursing Documentation Reviewed: Yes Vital Signs Reviewed: Yes - Physical Exam Appears: Positive for: Non-toxic, No Acute Distress Head Exam: Positive for: ATRAUMATIC, NORMAL INSPECTION, NORMOCEPHALIC Skin: Positive for: Normal Color, Warm, Dry. Negative for: Rash Eye Exam: Positive for: Normal appearance, EOMI, PERRL Neck: Positive for: Normal, Painless ROM, Supple Cardiovascular/Chest: Positive for: Regular Rate, Rhythm. Negative for: Murmur Respiratory: Positive for: Normal Breath Sounds. Negative for: Respiratory Distress Gastrointestinal/Abdominal: Positive for: Normal Exam, Bowel Sounds, Soft. Negative for: Tenderness Back: Positive for: Normal Inspection. Negative for: L CVA Tenderness, R CVA Tenderness, Vertebral Tenderness Extremity: Positive for: Normal ROM. Negative for: Pedal Edema, Deformity Neurologic/Psych: Positive for: Alert, Oriented (x3). Negative for: Motor/ Sensory Deficits - Laboratory Results Result Diagrams: 12/12/17 20:46 12/12/17 20:46 - ECG O2 Sat by Pulse Oximetry: 99 (RA) Pulse Ox Interpretation: Normal Medical Decision Making Medical Decision Making: Time: 20:08 Initial Impression: 37 y/o female with radicular neuropathic pain in setting of previous circular disk fusion Initial Plan: --CT Cervical Spine w/o contrast --BMP --Urine dipstick --CBC w/ differential --Benadryl 25 mg IV --Phenergan 25 mg IV --Heplock insertion --Urinalysis --Reevaluation Time: 21:25 --Flexeril 10 mg PO --Reevaluation Time: 00:[address] FINDINGS: Vertebrae: There is maintenance of the cervical lordosis. There is no prevertebral soft tissue swelling. There are no fractures. There are postsurgical changes of anterior fusion C5/C6. There is an anterior plate and screws. There is a cage in the C5-C6 disc space. There is streak artifact from hardware. There are early degenerative changes C3-C4, unchanged with minimal anterolisthesis C3 on C4. There is continued mild retrolisthesis C6 on C7. There are degenerative changes C6-C7. There is mild posterior disc space narrowing at all levels. Facet joints align anatomically. Spinous processes align in the expected fashion. Bone mineralization is normal. Discs/spinal canal/neural foramina: See above. Soft tissues: See above. Thyroid: Thyroid is only partially imaged. Lung apices: Lung apices are clear. IMPRESSION: Anterior fusion C5/C6 without instrument failure; mild degenerative change; no fracture Patient was informed of benign findings on imaging. Was encouraged to follow up with pain management. Diagnosis is chronic neck pain and cervical radiculopathy. Scribe Attestation: Documented by Tony Taveras, acting as a scribe for Mina Hong MD. Provider Scribe Attestation: All medical record entries made by the Scribe were at my direction and personally dictated by me. I have reviewed the chart and agree that the record accurately reflects my personal performance of the history, physical exam, medical decision making, and the department course for this patient. I have also personally directed, reviewed, and agree with the discharge instructions and disposition. Disposition - Clinical Impression Clinical Impression: Chronic neck and back pain, Radiculopathy - Patient ED Disposition Is Patient to be Admitted: No - Disposition Disposition: Routine/Home Disposition Time: 00:54 Condition: STABLE Additional Instructions: Please follow up with you pain management provider and primary provider in 1-2 days Continue all medications as prescribed Instructions: Chronic Pain (ED), Cervical Radiculopathy (ED) Forms: [employer] (Emirati)
--- NOTE | 2017-12-13 00:34 | CT ---
EXAM: CT Cervical Spine Without Intravenous Contrast EXAM DATE/TIME: 12/12/2017 8:08 PM CLINICAL HISTORY: 37 years old, female; Pain; Neck pain; Prior surgery; Surgery date: 6+ months; Surgery type: Cervical fusion; Additional info: Neck pain; HX cervical fusion TECHNIQUE: Axial computed tomography images of the cervical spine without intravenous contrast. All CT scans at this facility use one or more dose reduction techniques, viz.: automated exposure control; ma/kV adjustment per patient size (including targeted exams where dose is matched to indication; i.e. head); or iterative reconstruction technique. Coronal and sagittal reformatted images were created and reviewed. COMPARISON: CT - CERVICAL SPINE W/O CONTRAST 2017-01-02 17:48 FINDINGS: Vertebrae: There is maintenance of the cervical lordosis. There is no prevertebral soft tissue swelling. There are no fractures. There are postsurgical changes of anterior fusion C5/C6. There is an anterior plate and screws. There is a cage in the C5-C6 disc space. There is streak artifact from hardware. There are early degenerative changes C3-C4, unchanged with minimal anterolisthesis C3 on C4. There is continued mild retrolisthesis C6 on C7. There are degenerative changes C6-C7. There is mild posterior disc space narrowing at all levels. Facet joints align anatomically. Spinous processes align in the expected fashion. Bone mineralization is normal. Discs/spinal canal/neural foramina: See above. Soft tissues: See above. Thyroid: Thyroid is only partially imaged. Lung apices: Lung apices are clear. IMPRESSION: Anterior fusion C5/C6 without instrument failure; mild degenerative change; no fracture
--- NOTE | 2017-12-13 18:12 | CARD ---
APPROVED REPORT EKG Measurement Heart [id number] <Conclusion> Normal sinus rhythm Normal ECG
== END 2017-12-13 02:11 | disposition home or self-care (01) ==
LOC: H.ER 18:39
DX: R07.89 Other chest pain (principal); M54.12 Radiculopathy, cervical region; E03.9 Hypothyroidism, unspecified; G89.29 Other chronic pain; I10 Essential (primary) hypertension; J45.909 Unspecified asthma, uncomplicated; M79.7 Fibromyalgia; Z88.0 Allergy status to penicillin; Z98.1 Arthrodesis status
CPT/HCPCS: 72125; 80048; 81003; 81025; 85025; 93005; 96374; 99282; J1200; J1885; J2550

== ENCOUNTER 2018-01-11 21:20 | Emergency (ER) | payer OTHER ==
[2018-01-11 21:20] VITALS: BMI 22.6
[2018-01-11 21:56] VITALS: BP 125/87; PULSE 90; RESP 18; TEMP 98.4; O2SAT 100
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
--- NOTE | 2018-01-12 08:54 | RAD ---
PROCEDURE: Cervical Spine Radiographs. HISTORY: Pain. COMPARISON: Cervical spine series dated 11/03/2016 and 12/13/2016. FINDINGS: BONES: Prior C5-6 spinal fusion hardware unchanged in position. Alignment maintained. No interval fracture. Dens Intact. DISC SPACES: Limited spondylosis is developing at C3-4 and C6-7. SOFT TISSUES: Normal. No prevertebral soft tissue swelling. OTHER FINDINGS: None. IMPRESSION: Stable C5-6 fusion. No interval fracture or definitive spondylolisthesis appreciable. Limited interval spondylosis as described above.
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
--- NOTE | 2018-01-12 08:57 | RAD ---
PROCEDURE: Radiographs of the Lumbar Spine. HISTORY: COMPARISON: No prior. FINDINGS: BONES: Normal alignment. No listhesis. No fracture. 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 Clinically correlate. Remaining disc interspaces are normal in height. OTHER FINDINGS: None. IMPRESSION: No interval fracture or spondylolisthesis. 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 Please see discussion above.
== END 2018-01-11 22:50 | disposition home or self-care (01) ==
LOC: H.ER 21:20
DX: M54.5 Low back pain (principal); S16.1XXA Strain of muscle, fascia and tendon at neck level, initial encounter; S39.012A Strain of muscle, fascia and tendon of lower back, initial encounter; S43.409A Unspecified sprain of unspecified shoulder joint, initial encounter; Z88.0 Allergy status to penicillin; F17.200 Nicotine dependence, unspecified, uncomplicated; J45.909 Unspecified asthma, uncomplicated; I10 Essential (primary) hypertension; E03.9 Hypothyroidism, unspecified; Y04.2XXA Assault by strike against or bumped into by another person, initial encounter

== ENCOUNTER 2018-02-12 15:17 | Emergency (ER) | payer OTHER ==
[2018-02-12 15:17] VITALS: BMI 22.6
[2018-02-12] MEDS ORDERED: Iohexol 240 (50 ml) PO ONE (16:12)
[2018-02-12] MEDS ORDERED: Sodium Chloride 0.9% 1,000 ML IV STA ×2 (16:15→22:33)
--- NOTE | 2018-02-12 16:28 | ED PDOC ---
HPI: Abdomen Time Seen by Provider: 02/12/18 15:47 Chief Complaint (Nursing): Abdominal Pain Chief Complaint (Provider): abdominal pain vomiting diarrhea History Per: Patient History/Exam Limitations: no limitations Onset/Duration Of Symptoms: Days Location Of Pain/Discomfort: RLQ Quality Of Discomfort: Sharp Associated Symptoms: Nausea, Vomiting, Diarrhea, Loss Of Appetite Exacerbating Factors: None Alleviating Factors: None Last Bowel Movement: Today Additional Complaint(s): 37yo female c/o right sided abdominal pain, nausea/vomiting and diarrhea onset last night. Symptoms associated w chills and tactile fever earlier. Denies urinary symptoms, blood in stool or syncope. Past Medical History Reviewed: Historical Data, Nursing Documentation, Vital Signs Vital Signs: Last Vital Signs Temp 98.2 F 02/12/18 15:49 Pulse 70 02/12/18 18:56 Resp 18 02/12/18 18:56 BP 142/88 02/12/18 18:56 Pulse Ox 100 02/12/18 18:56 - Medical History PMH: Asthma, Back Problems, Fibromyalgia, Fractures (left foot), HTN, Hypothyroidism, Migraine, Chronic Pain (neck, back, right leg) Denies: Arthritis, CHF, COPD, Diabetes, Hepatitis, HIV, Hypercholesterolemia , Chronic Kidney Disease, Rheumatoid Arthritis, Seizures, Sexually Transmitted Disease - Surgical History Surgical History: Back Surgery (Cervical spine Diskectomy and fusion C5-6) - Family History Family History: States: Unknown Family Hx, [place] (maternal grandparents had [place] in their 60s), Hypertension - Living Arrangements Living Arrangements: With Family - Social History Drugs: Denies - Immunization History Hx Tetanus Toxoid Vaccination: No Hx Influenza Vaccination: No Hx Pneumococcal Vaccination: No - Home Medications Home Medications: Ambulatory Orders Medication Instructions Recorded Topiramate [Topamax] 100 mg PO BID 11/03/16 Gabapentin [Neurontin] 600 mg PO TID #20 tablet 01/02/17 Docusate [Colace] 100 mg PO BID PRN #24 cap 03/24/17 hydroCHLOROthiazide [Hydrodiuril] 1 tab PO DAILY 03/24/17 Lactulose 20 gm PO BID PRN #1 bottle 04/12/17 diaZEpam [Valium] 1 tab PO PRN PRN 07/25/17 oxyCODONE [oxycodone Hydrochloride] 10 mg PO TID 07/25/17 Naproxen [Naprosyn] 1 tab PO BID PRN #30 tab 10/05/17 Cyclobenzaprine [Cyclobenzaprine 10 mg PO TID PRN #20 tab 01/11/18 HCl] Naproxen [Naprosyn] 500 mg PO BID #20 tab 01/11/18 - Allergies Allergies/Adverse Reactions: Allergies Allergy/AdvReac Type Severity Reaction Status Date / Time clarithromycin [From Biaxin] Allergy NAUSEA Verified 02/12/18 15:49 Penicillins Allergy RASH Verified 02/12/18 15:49 sumatriptan [From Imitrex] AdvReac High bp Verified 02/12/18 15:49 sumatriptan succinate AdvReac high bp Verified 02/12/18 15:49 [From Imitrex] Review of Systems Constitutional: Positive for: Fever, Chills, Malaise Cardiovascular: Negative for: Chest Pain, Palpitations Respiratory: Negative for: Cough, Shortness of Breath Gastrointestinal: Positive for: Nausea, Vomiting, Abdominal Pain, Diarrhea. Negative for: Constipation, Melena, Hematochezia Genitourinary Female: Negative for: Dysuria, Frequency Musculoskeletal: Negative for: Arm Pain, Leg Pain Skin: Negative for: Rash, Lesions, Jaundice Neurological: Negative for: Weakness, Numbness Psych: Negative for: Anxiety, Depression Physical Exam - Reviewed Nursing Documentation Reviewed: Yes Vital Signs Reviewed: Yes - Physical Exam Appears: Positive for: Well, Non-toxic, No Acute Distress Head Exam: Positive for: ATRAUMATIC, NORMAL INSPECTION, NORMOCEPHALIC Skin: Positive for: Normal Color, Warm, DRY Eye Exam: Positive for: EOMI, Normal appearance, PERRL ENT: Positive for: Normal ENT Inspection Neck: Positive for: Normal, Painless ROM Cardiovascular/Chest: Positive for: Regular Rate, Rhythm Respiratory: Positive for: CNT, Normal Breath Sounds Gastrointestinal/Abdominal: Positive for: Bowel Sounds, Soft, Tenderness (RLQ). Negative for: Guarding, Rebound Back: Positive for: Normal Inspection Extremity: Positive for: Normal ROM Neurologic/Psych: Positive for: Alert, Oriented. Negative for: Motor/Sensory Deficits - Laboratory Results Result Diagrams: 02/12/18 16:48 02/12/18 16:48 - ECG O2 Sat by Pulse Oximetry: 99 Medical Decision Making Medical Decision Making: workup for abdominal pain w vomiting / diarrhea initiated Labs and CT abd pelv ordered r/o appendicitis IVF, antiemetic and toradol for pain ordered 640p pt required morphine for continued pain. Patient does take Zubslov per [facility] database. had small localized urticarial response to morphine injection R hand and forearm. benadryl ordered labs unremarkable endorse Dr Christianson 7p [address] CT result and dispo Disposition - Clinical Impression Clinical Impression: Abdominal pain in female - Patient ED Disposition Is Patient to be Admitted: Transfer of Care - Disposition Disposition: Transfer of Care Disposition Time: 19:01 Condition: STABLE Forms: [facility] (Monegasque) Patient Signed Over To: David Christianson Handoff Comments: imaging/re-eval and dispo
[2018-02-12] MEDS ORDERED: Iohexol 240 (50 ml) ONE (16:32)
[2018-02-12 16:56] LABS: BASO # 0.1 K/uL (0.0-0.2); BASO % 0.8 % (0.0-2.0); EOS # 0.1 K/uL (0.0-0.7); EOS % 0.7 % (0.0-4.0); HEMOGLOBIN 14.7 g/dL (12.0-16.0); LYMPH # 2.8 K/uL (1.0-4.3); LYMPH % 26.4 % (20.0-40.0); MEAN CORPUSCULAR HEMOGLOBIN 31.3 pg (27.0-31.0); MEAN CORPUSCULAR HGB CONC 33.6 g/dL (33.0-37.0); MEAN PLATELET VOLUME 7.8 fl (7.2-11.7); MONO # 0.6 K/uL (0.0-0.8); MONO % 5.3 % (0.0-10.0); NEUT % 66.8 % (50.0-75.0); NRBC % 0.1 % (0.0-0.0); RBC 4.69 Mil/uL (3.80-5.20); RED CELL DISTRIBUTION WIDTH 13.5 % (11.5-14.5); WHITE BLOOD COUNT 10.5 K/uL (4.8-10.8)
[2018-02-12 17:02] LABS: INR 1.1 (0.9-1.2); PARTIAL THROMBOPLASTIN TIME 25.8 Seconds (25.6-37.1); PROTHROMBIN TIME 12.2 Seconds (9.8-13.1)
[2018-02-12 17:05] LABS: SQUAMOUS EPITHIAL 30 /hpf (0-5); URINE BACTERIA RARE (<OCC); URINE BILIRUBIN NEGATIVE (NEGATIVE); URINE BLOOD NEGATIVE (NEGATIVE); URINE CLARITY CLOUDY (Clear); URINE COLOR YELLOW (YELLOW); URINE GLUCOSE (UA) NEG (Normal); URINE LEUKOCYTE ESTERASE NEG Leu/uL (Negative); URINE PROTEIN NEGATIVE (NEGATIVE); URINE UROBILINOGEN 0.2-1.0 mg/dL (0.2-1.0)
[2018-02-12 17:08] LABS: ALB/GLOB RATIO 1.2 (1.0-2.1); ALBUMIN 4.3 g/dL (3.5-5.0); CALCIUM 9.4 mg/dL (8.4-10.2); GFR AFRICAN-AMERICAN > 60; GFR NON-AFRICAN AMERICAN > 60; LIPASE 80 U/L (23-300)
[2018-02-12 17:21] LABS: ALT/SGPT 22 U/L (9-52); AST/SGOT 26 U/L (14-36); BLOOD UREA NITROGEN 20 mg/dl (7-17)
[2018-02-12] MEDS ORDERED: Morphine 4 MG/ML VIAL IV STA (18:24)
[2018-02-12] MEDS ORDERED: Morphine 4 MG/ML VIAL ONE (18:31)
[2018-02-12] MEDS ORDERED: DiphenhydrAMINE 50 mg/ml Inj IVP STA (18:43)
[2018-02-12] MEDS ORDERED: DiphenhydrAMINE 50 mg/ml Inj ONE (18:47)
[2018-02-12] MEDS ORDERED: Iohexol 300 100 ML IJ ONE (19:56)
--- NOTE | 2018-02-12 19:57 | ED PDOC ---
- Laboratory Results Result Diagrams: 02/12/18 16:48 02/12/18 16:48 - ECG O2 Sat by Pulse Oximetry: 99 Medical Decision Making Medical Decision Makin:00 Patient will be signed out to Dr. Christianson. Pending serology. Disposition - Clinical Impression Clinical Impression: Abdominal pain in female - Disposition Condition: STABLE Forms: [facility] (Persian)
--- NOTE | 2018-02-12 21:05 | CT ---
EXAM: CT Abdomen and Pelvis With Intravenous Contrast CLINICAL HISTORY: 37 years old, female; Pain; Abdominal pain; Localized; Right lower quadrant (rlq); Prior surgery; Surgery date: 6+ months; Surgery type: Tubal ligation; Additional info: Rlq pain vomiting TECHNIQUE: Axial computed tomography images of the abdomen and pelvis with intravenous contrast. All CT scans at this facility use one or more dose reduction techniques, viz.: automated exposure control; ma/kV adjustment per patient size (including targeted exams where dose is matched to indication; i.e. head); or iterative reconstruction technique. Coronal and sagittal reformatted images were created and reviewed. CONTRAST: 90 mL of [id number] administered intravenously. COMPARISON: CT - ABD PELVIS PO IV CONTRAST 2017-01-31 05:05 FINDINGS: Lower thorax: No acute findings. ABDOMEN: Liver: Mild fatty infiltration. 0.6 cm cm lesion with flash filling enhancement, likely hemangioma, grossly stable. Gallbladder and bile ducts: No calcified stones. No ductal dilation. Pancreas: No ductal dilation. No mass. Spleen: No splenomegaly. Adrenals: No mass. Kidneys and ureters: No mass. No hydronephrosis. Stomach and bowel: Apparent mild mural/fold thickening vs underdistention of few jejunal loops. No associated inflammatory stranding. Few mildly distended loops of small bowel, likely ileus. Appendix: No definite findings to suggest acute appendicitis. PELVIS: Bladder: Unremarkable. Reproductive: Unremarkable as visualized. ABDOMEN and PELVIS: Intraperitoneal space: No significant fluid collection. No free air. Bones/joints: No acute fracture. Soft tissues: Unremarkable. Vasculature: Unremarkable. No aneurysm. Lymph nodes: No pathologically enlarged lymph nodes. IMPRESSION: 1. Possible mild enteritis. Clinical correlation is needed. 2. Incidental/non-acute findings are described above.
[2018-02-12] MEDS ORDERED: Ciprofloxacin 400mg/200ml D5W 400 MG/200 ML BAG IVPB STA (22:32)
[2018-02-12] MEDS ORDERED: metroNIDAZOLE 500mg/100ml NS 100 ML IVPB STA (22:33)
--- NOTE | 2018-02-12 23:36 | ED PDOC ---
"- Laboratory Results Result Diagrams: 02/12/18 16:48 02/12/18 16:48 - ECG O2 Sat by Pulse Oximetry: 99 Pulse Ox Interpretation: Normal Medical Decision Making Medical Decision MakinPM: Patient endorsed to me by Dr. Mullins pending CT and re-eval 9PM: EXAM: CT Abdomen and Pelvis With Intravenous Contrast CLINICAL HISTORY: 37 years old, female; Pain; Abdominal pain; Localized; Right lower quadrant (rlq ); Prior surgery; Surgery date: 6+ months; Surgery type: Tubal ligation; Additional info: Rlq pain vomiting TECHNIQUE: Axial computed tomography images of the abdomen and pelvis with intravenous contrast. All CT scans at this facility use one or more dose reduction techniques, viz.: automated exposure control; ma/kV adjustment per patient size (including targeted exams where dose is matched to indication; i.e. head); or iterative reconstruction technique. Coronal and sagittal reformatted images were created and reviewed. CONTRAST: 90 mL of [id number] administered intravenously. COMPARISON: CT - ABD PELVIS PO IV CONTRAST 2017-01-31 05:05 FINDINGS: Lower thorax: No acute findings. ABDOMEN: Liver: Mild fatty infiltration. 0.6 cm cm lesion with flash filling enhancement , likely hemangioma, grossly stable. Gallbladder and bile ducts: No calcified stones. No ductal dilation. Pancreas: No ductal dilation. No mass. Spleen: No splenomegaly. Adrenals: No mass. Kidneys and ureters: No mass. No hydronephrosis. Stomach and bowel: Apparent mild mural/fold thickening vs underdistention of few jejunal loops. No associated inflammatory stranding. Few mildly distended loops of small bowel, likely ileus. Appendix: No definite findings to suggest acute appendicitis. PELVIS: Bladder: Unremarkable. Reproductive: Unremarkable as visualized. BRANDT NAVA | Final Radiology Report CONFIDENTIALITY STATEMENT This report is intended only for use by the referring physician, and only in accordance with law. If you received this in error, call [phone]. Page 2 of 2 ABDOMEN and PELVIS: Intraperitoneal space: No significant fluid collection. No free air. Bones/joints: No acute fracture. Soft tissues: Unremarkable. Vasculature: Unremarkable. No aneurysm. Lymph nodes: No pathologically enlarged lymph nodes. IMPRESSION: 1. Possible mild enteritis. Clinical correlation is needed. 2. Incidental/non-acute findings are described above. Thank you for allowing us to participate in the care of your patient. Dictated and Authenticated by: Wilbur Lino MD 02/12/2018 9:05 PM Eastern Time ([place] & [place]) Patient was feeling well, but after IV removal patient vomited. IV line replaced, reglan and IVF given 10PM Patient requesting more pain medication, 2mg IV morphine given. 11PM Patient states pain is now gone and wants to go home, refusing flagyl IV, patient already received cipro IV. Gave patient referral to GI and [facility]. Advised to return to ER for worsening or concerning symptoms. Tolerating PO, ambulatory, feeling well for discharge. Disposition - Clinical Impression Clinical Impression: Enteritis - POA Present On Arrival: None - Disposition Referrals: [facility] [Outside] Mina Butcher MD [Medical Doctor] - Disposition: Routine/Home Disposition Time: 23:00 Condition: IMPROVED Prescriptions: Ciprofloxacin [Cipro] 500 mg PO BID 7 Days tab Dicyclomine [Bentyl] 20 mg PO BID #30 tab metroNIDAZOLE [Flagyl] 500 mg PO BID 7 Days tab Instructions: Acute Abdomen (Belly Pain), Adult (DC), Viral Gastroenteritis, Adult (DC) Forms: [employer] (Panamanian)"
[2018-02-13 11:12] VITALS: BP 116/78; PULSE 66; RESP 18; TEMP 98.1; O2SAT 98
== END 2018-02-12 23:56 | disposition home or self-care (01) ==
LOC: H.ER 15:17
DX: K52.9 Noninfective gastroenteritis and colitis, unspecified (principal); E03.9 Hypothyroidism, unspecified; G89.29 Other chronic pain; I10 Essential (primary) hypertension; M79.7 Fibromyalgia; J45.909 Unspecified asthma, uncomplicated; Z88.0 Allergy status to penicillin
CPT/HCPCS: 74177; 80053; 81003; 81025; 83690; 85025; 85610; 85730; 96374; 96375; 96376; 99284; J0744; J1200; J1885; J2270; J2765; J7040; Q9966; Q9967

== ENCOUNTER 2018-02-14 01:27 | Observation (INO) | payer OTHER ==
[2018-02-14 01:27] VITALS: BMI 22.6
[2018-02-14] MEDS ORDERED: Belladonna-Phenobarbital PO STA (03:00)
--- NOTE | 2018-02-14 03:07 | ED PDOC ---
HPI: Abdomen Chief Complaint (Provider): GI Problem History Per: Patient History/Exam Limitations: no limitations Onset/Duration Of Symptoms: Days (since 02/11/18) Outside of [place] travel?: No Location Of Pain/Discomfort: Diffuse Associated Symptoms: Nausea, Vomiting, Diarrhea, Loss Of Appetite <Tisha Fairbakns - Last Filed: 02/14/18 06:43> <Miya Sanches - Last Filed: 02/14/18 13:29> Time Seen by Provider: 02/14/18 02:09 Chief Complaint (Nursing): GI Problem Additional Complaint(s): Patient is a 37 year old female who presents to the ED for continued diffuse abdominal pain and nausea. Patients states she was in in ED yesterday and had a CT scan of her abdomen done that revealed enteritis. Patient states she was given medication for nausea and once she was able to tolerate PO intake yesterday in ED, she was discharged home with Flagyl, Cipro, and Bentyl (all of which were [facility] Patient also reports a small amount blood in her stool today and reports she has had >5 episodes of diarrhea today. Patient denies any fever, urinary symptoms, flank pain, cough, SOB, or recent travel. PMD Brown (Tisha Fairbanks) Past Medical History Reviewed: Historical Data, Nursing Documentation, Vital Signs - Medical History PMH: Asthma, Back Problems, Fibromyalgia, Fractures (left foot), HTN, Hypothyroidism, Migraine, Chronic Pain (neck, back, right leg) Denies: Arthritis, CHF, COPD, Diabetes, Hepatitis, HIV, Hypercholesterolemia , Chronic Kidney Disease, Rheumatoid Arthritis, Seizures, Sexually Transmitted Disease Other PMH: ovarian cysts - Surgical History Surgical History: Back Surgery (Cervical spine Diskectomy and fusion C5-6) Other surgeries: tubal ligation - Family History Family History: States: [place] (maternal grandparents had [place] in their 60s), Hypertension - Living Arrangements Living Arrangements: With Family - Social History Current smoker - smoking cessation education provided: Yes (1/2 ppd) Alcohol: None Drugs: Denies <Tisha Fairbanks - Last Filed: 02/14/18 06:43> <Miya Sanches - Last Filed: 02/14/18 13:29> Vital Signs: Last Vital Signs Temp 98.3 F 03/30/18 09:27 Pulse 59 L 02/14/18 09:27 Resp 17 02/14/18 10:53 BP 155/87 H 02/14/18 09:27 Pulse Ox 98 02/14/18 09:27 - Home Medications Home Medications: Ambulatory Orders Medication Instructions Recorded Buprenorphine HCl/Naloxone HCl 1 tab PO DAILY 02/14/18 [Zubsolv 5.7-1.4 mg Tablet Sl] Gabapentin [Neurontin] 600 mg PO TID 02/14/18 Ibuprofen [Motrin Tab] 800 mg PO TID PRN 02/14/18 diaZEpam [Valium] 5 mg PO HS 02/14/18 - Allergies Allergies/Adverse Reactions: Allergies Allergy/AdvReac Type Severity Reaction Status Date / Time clarithromycin [From Biaxin] Allergy NAUSEA Verified 02/14/18 01:37 Penicillins Allergy RASH Verified 02/14/18 01:37 sumatriptan [From Imitrex] AdvReac High bp Verified 02/14/18 01:37 sumatriptan succinate AdvReac high bp Verified 02/14/18 01:37 [From Imitrex] Review of Systems ROS Statement: Except As Marked, All Systems Reviewed And Found Negative Gastrointestinal: Positive for: Nausea, Vomiting, Abdominal Pain, Diarrhea <Tisha Fairbanks - Last Filed: 02/14/18 06:43> Physical Exam - Reviewed Nursing Documentation Reviewed: Yes Vital Signs Reviewed: Yes - Physical Exam Appears: Positive for: Well, Non-toxic, Uncomfortable Head Exam: Positive for: ATRAUMATIC, NORMOCEPHALIC Skin: Positive for: Warm, Dry Eye Exam: Positive for: EOMI, PERRL Neck: Positive for: Painless ROM, Supple Cardiovascular/Chest: Positive for: Regular Rate, Rhythm Respiratory: Positive for: Normal Breath Sounds. Negative for: Decreased Breath Sounds, Accessory Muscle Use, Respiratory Distress Gastrointestinal/Abdominal: Positive for: Bowel Sounds (active x4), Soft, Tenderness (diffuse), Distended (mild), Guarding (mild). Negative for: Mass, Rebound Rectal: Positive for: Rectal Tone Is: (tight), Other (2mm anal fissure noted at the 3oclock position (-) active bleeding. Gayatri ED RN, was my human resources receptionist for the entire rectal examination.). Negative for: Black Stool, Hemorrhoids, Mass Extremity: Positive for: Normal ROM. Negative for: Pedal Edema Neurologic/Psych: Positive for: Alert, Oriented (x3), Mood/Affect (appropriate) , Gait (steady in ED). Negative for: Aphasia, Facial Droop <Tisha Fairbanks - Last Filed: 02/14/18 06:43> - Laboratory Results Result Diagrams: 02/14/18 03:53 02/14/18 03:53 Urine POC: Negative - ECG O2 Sat by Pulse Oximetry: 96 (RA) Pulse Ox Interpretation: Normal <Tisha Fairbanks - Last Filed: 02/14/18 06:43> - Laboratory Results Result Diagrams: 02/14/18 03:53 02/14/18 03:53 - Progress Re-evaluation Time: 06:30 Condition: Re-examined, Unchanged <Miya Sanches Bob - Last Filed: 02/14/18 13:29> Medical Decision Making <MagdiTisha Liza - Last Filed: 02/14/18 06:43> <Miya Sanches A - Last Filed: 02/14/18 13:29> Medical Decision Makin Initial Impression: Enteritis, Abdominal Pain, Nausea and Vomiting, Diarrhea -IV access, IVF -CBC -CMP -Lipase -Toradol IV -Zofran PO -Donnatol PO -Re-evaluation 0430 Occult blood stool: Negative. 0434 Patient reports persistent abdominal pain. Tramadol 100mg PO administered. Patient tolerating PO intake in ED without difficulty. 0525 Patient requesting narcotic medication at this time. Labs reviewed and unchanged from prior ED visit. Case discussed with Dr Sanches, who states narcotics are not to be given at this time. Advises if patient is in continued pain, repeat CT abd/pel is needed. Patient requesting to speak with ED MD at this time. [address] Sanches, patient to get repeat CT abd/pel with IV contrast only. Flagyl and Cipro IV ordered. Further care per Dr Sanches. (Tisha Fairbanks) [address] abdomen report. Patient continues to have abdominal pain, nausea, and reports vomiting/diarrhea at home. Admit to observation for intractable pain, vomiting and diarrhea. (Miya Sanches) Disposition - Patient ED Disposition Is Patient to be Admitted: Transfer of Care Counseled Patient/Family Regarding: Studies Performed, Diagnosis - Disposition Disposition: Transfer of Care (Dr Sanches) Disposition Time: 06:30 - POA Present On Arrival: None <Tisha Fairbanks - Last Filed: 02/14/18 06:43> - Patient ED Disposition Is Patient to be Admitted: Yes Discussed With DrJacob: Jacobo Rob Doctor Will See Patient In The: Hospital - Pt Status Changed To: Hospital Disposition Of: Observation <Miya Sanches - Last Filed: 02/14/18 13:29> - Clinical Impression Clinical Impression: Enteritis, Abdominal pain, Diarrhea, Nausea and vomiting - Disposition Condition: FAIR - Lab Results Lab Results: 02/14/18 02/14/18 02/14/18 03:56 03:53 03:53 WBC 9.8 RBC 4.40 Hgb 13.8 Hct 40.7 MCV 92.6 MCH 31.4 H MCHC 33.9 RDW 13.5 Plt Count 263 MPV 7.4 Neut % (Auto) 64.0 Lymph % (Auto) 27.9 [place] % (Auto) 6.5 Eos % (Auto) 0.9 Baso % (Auto) 0.7 Neut # (Auto) 6.2 Lymph # (Auto) 2.7 [place] # (Auto) 0.6 Eos # (Auto) 0.1 Baso # (Auto) 0.1 Sodium 143 Potassium 3.5 L Chloride 108 H Carbon Dioxide 21 L Anion Gap 18 BUN 20 H Creatinine 0.8 Est GFR ( Amer) > 60 Est GFR (Non-Af Amer) > 60 Random Glucose 99 Calcium 8.9 Total Bilirubin 0.8 AST 21 ALT 15 Alkaline Phosphatase 46 Total Protein 7.2 Albumin 4.0 Globulin 3.2 Albumin/Globulin Ratio 1.3 Lipase 132 Stool Occult Blood Negative
[2018-02-14] MEDS: Sodium Chloride 0.9% 1,000 ML IV SCH ×4 (03:58→13:26)
[2018-02-14 03:59] LABS: BASO # 0.1 K/uL (0.0-0.2); BASO % 0.7 % (0.0-2.0); EOS # 0.1 K/uL (0.0-0.7); EOS % 0.9 % (0.0-4.0); HEMOGLOBIN 13.8 g/dL (12.0-16.0); LYMPH # 2.7 K/uL (1.0-4.3); LYMPH % 27.9 % (20.0-40.0); MEAN CELL VOLUME 92.6 fl (81.0-99.0); MEAN CORPUSCULAR HEMOGLOBIN 31.4 pg (27.0-31.0); MEAN CORPUSCULAR HGB CONC 33.9 g/dL (33.0-37.0); MEAN PLATELET VOLUME 7.4 fl (7.2-11.7); MONO # 0.6 K/uL (0.0-0.8); MONO % 6.5 % (0.0-10.0); NEUT # 6.2 K/uL (1.8-7.0); RBC 4.4 Mil/uL (3.80-5.20); RED CELL DISTRIBUTION WIDTH 13.5 % (11.5-14.5); WHITE BLOOD COUNT 9.8 K/uL (4.8-10.8)
[2018-02-14 04:21] LABS: ALB/GLOB RATIO 1.3 (1.0-2.1); ALT/SGPT 15 U/L (9-52); AST/SGOT 21 U/L (14-36); BLOOD UREA NITROGEN 20 mg/dl (7-17); CALCIUM 8.9 mg/dL (8.4-10.2); GFR AFRICAN-AMERICAN > 60; GFR NON-AFRICAN AMERICAN > 60; LIPASE 132 U/L (23-300)
[2018-02-14] MEDS ORDERED: metroNIDAZOLE 500mg/100ml NS 100 ML IVPB STA (05:49)
[2018-02-14] MEDS ORDERED: Ciprofloxacin 400mg/200ml D5W 400 MG/200 ML BAG IVPB STA (05:51)
[2018-02-14] MEDS ORDERED: metroNIDAZOLE 500mg/100ml NS 100 ML IVPB ONE (05:56)
[2018-02-14] MEDS ORDERED: Sodium Chloride 0.9% 100 ML ONE (06:00)
[2018-02-14] MEDS ORDERED: Iohexol 300 100 ML IJ ONE (06:00)
--- NOTE | 2018-02-14 06:49 | CT ---
EXAM: CT Abdomen and Pelvis With Intravenous Contrast CLINICAL HISTORY: 37 years old, female; Pain; Abdominal pain; Generalized; Prior surgery; Surgery date: 6+ months; Surgery type: ; Additional info: Abd pain, vomiting, and diarrhea TECHNIQUE: Axial computed tomography images of the abdomen and pelvis with intravenous contrast. All CT scans at this facility use one or more dose reduction techniques, viz.: automated exposure control; ma/kV adjustment per patient size (including targeted exams where dose is matched to indication; i.e. head); or iterative reconstruction technique. 151 images are submitted. Coronal and sagittal reformatted images were created and reviewed. CONTRAST: 90 mL of [id number] administered intravenously. COMPARISON: CT - ABD PELVIS PO IV CONTRAST 2018-02-12 20:01 FINDINGS: Lung bases: Unremarkable. No mass. No consolidation. Mediastinum: Small hiatal hernia. Small hiatal hernia. ABDOMEN: Liver: Enlarged fatty liver. Gallbladder and bile ducts: Contracted gallbladder. Pancreas: Unremarkable. No mass. No ductal dilation. Spleen: Unremarkable. No splenomegaly. Adrenals: Unremarkable. No mass. Kidneys and ureters: Unremarkable. No solid mass. No hydronephrosis. Stomach and bowel: There are nonspecific fluid filled stomach, small bowel loops and colon. These findings can represent ileus versus infectious versus inflammatory gastroenteritis/enterocolitis versus slow transit versus peristalsis. Diverticulosis. No obstruction. Appendix: Normal appendix. PELVIS: Bladder: Partially decompressed bladder with bladder wall thickening. Correlation with urinalysis is recommended only if clinical cystitis is suspected. Reproductive: Uterus is seen. High riding ovaries. ABDOMEN and PELVIS: Intraperitoneal space: Unremarkable. No free air. No significant fluid collection. Bones/joints: No acute fracture. No dislocation. Soft tissues: Unremarkable. Vasculature: Unremarkable. No abdominal aortic aneurysm. Lymph nodes: Unremarkable. No enlarged lymph nodes. IMPRESSION: 1. There are nonspecific fluid filled stomach, small bowel loops and colon. These findings can represent ileus versus infectious versus inflammatory gastroenteritis/enterocolitis versus slow transit versus peristalsis.
[2018-02-14] MEDS ORDERED: Morphine 4 MG/ML VIAL IVP ONE (06:57)
[2018-02-14] MEDS ORDERED: Ciprofloxacin 400mg/200ml D5W 400 MG/200 ML BAG IVPB ONE (07:17)
[2018-02-14] MEDS ORDERED: Morphine 4 MG/ML VIAL ONE (07:17)
[2018-02-14] MEDS ORDERED: DiphenhydrAMINE 50 mg/ml Inj IVP STA ×2 (08:02→18:19)
[2018-02-14] MEDS: Dextrose 5%/Lactated Ringer's 1,000 ML IV SCH ×2 (09:40→18:17)
[2018-02-14] MEDS ORDERED: Potassium Chloride 20 mEq/15 ml LIQ UD PO ONE (10:42)
[2018-02-14] MEDS ORDERED: Acetaminophen-Codeine 300/30 mg Tab PO PRN (11:36)
--- NOTE | 2018-02-14 14:23 | CP.PCM.HP ---
History of Present Illness - History of Present Illness History of Present Illness: 37 year old female with a past medical history that includes migraines, spinal stenosis, herniated disc, radiculopathy, who was admitted to hosp with continued diffuse abdominal pain and nausea. Patients states she was in in ED 2 days ago and had a CT scan of her abdomen done that revealed "enteritis". Patient states she was given medication for nausea and once she was able to tolerate PO intake yesterday in ED, she was discharged home with Flagyl, Cipro, and Bentyl (all of which were last taken at 11pm last night). Patient also reports a small amount blood in her stool today and reports she has had >5 episodes of diarrhea yesterday. Patient denies any fever, urinary symptoms, flank pain, cough, SOB, or recent travel. CT of the abd showed poss abd ileus This morning patient starts moaning when we enter the room c/o diffuse abd pain , as per patient her chronic lower back pain is flaring up now. She denies being taking any pain med at home at this time but admits she has taken multiple pain meds in the past and follows up with pain management as outpatient. Denies LE numbness, tingling, changes in urination or stools overnight. Afebrile. Nauseated at times Present on Admission - Present on Admission Any Indicators Present on Admission: No Review of Systems - Review of Systems All systems: reviewed and no additional remarkable complaints except (as per HPI ) Past Patient History - Infectious Disease Hx of Infectious Diseases: None - Tetanus Immunizations Tetanus Immunization: Unknown - Past Medical History & Family History Past Medical History?: Yes - Past Social History Smoking Status: Never Smoked - CARDIAC Hx Cardiac Disorders: Yes Hx Congestive Heart Failure: No Hx Hypercholesterolemia: No Hx Hypertension: Yes - PULMONARY Hx Respiratory Disorders: Yes Hx Asthma: Yes (Seasonal) Hx Chronic Obstructive Pulmonary Disease (COPD): No - NEUROLOGICAL Hx Neurological Disorder: Yes Hx Migraine: Yes Hx Seizures: No - HEENT Hx HEENT Problems: No - RENAL Hx Chronic Kidney Disease: No - ENDOCRINE/METABOLIC Hx Endocrine Disorders: Yes Hx Hypothyroidism: Yes - HEMATOLOGICAL/ONCOLOGICAL Hx Blood Disorders: No Hx Human Immunodeficiency Virus (HIV): No - INTEGUMENTARY Hx Dermatological Problems: No - MUSCULOSKELETAL/RHEUMATOLOGICAL Hx Musculoskeletal Disorders: Yes Hx Arthritis: No Hx Back Pain: Yes Hx Falls: Yes Hx Fractures: Yes (left foot with metal plates) Hx Rheumatoid Arthritis: No - GASTROINTESTINAL Hx Gastrointestinal Disorders: No - GENITOURINARY/GYNECOLOGICAL Hx Genitourinary Disorders: No Hx Sexually Transmitted Disorders: No - PSYCHIATRIC Hx Psychophysiologic Disorder: No Hx Substance Use: No - SURGICAL HISTORY Hx Surgeries: Yes Hx Tubal Ligation: Yes (2010) Other/Comment: Cervical spine diskectomy&fusion 12/2015 - ANESTHESIA Hx Anesthesia: Yes Hx Anesthesia Reactions: No Hx Malignant Hyperthermia: No Meds Allergies/Adverse Reactions: Allergies Allergy/AdvReac Type Severity Reaction Status Date / Time clarithromycin [From Biaxin] Allergy NAUSEA Verified 02/14/18 01:37 Penicillins Allergy RASH Verified 02/14/18 01:37 sumatriptan [From Imitrex] AdvReac High bp Verified 02/14/18 01:37 sumatriptan succinate AdvReac high bp Verified 02/14/18 01:37 [From Imitrex] Physical Exam - Constitutional Appears: Non-toxic, No Acute Distress - Eye Exam Eye Exam: EOMI, PERRL - ENT Exam ENT Exam: Mucous Membranes Moist - Respiratory Exam Respiratory Exam: Clear to Auscultation Bilateral, NORMAL BREATHING PATTERN. absent: Decreased Breath Sounds, Rales, Rhonchi, Wheezes, Stridor - Cardiovascular Exam Cardiovascular Exam: REGULAR RHYTHM, +S1, +S2. absent: Gallop - GI/Abdominal Exam GI & Abdominal Exam: Normal Bowel Sounds, Soft, Tenderness (Diffuse). absent: Distended, Firm, Guarding, Rebound, Rigid - Extremities Exam Extremities exam: Positive for: normal capillary refill, pedal pulses present. Negative for: joint swelling, pedal edema, tenderness - Back Exam Back exam: vertebral tenderness. absent: CVA tenderness (L), CVA tenderness (R) - Neurological Exam Neurological exam: Alert, CN II-XII Intact, Oriented x3 - Psychiatric Exam Psychiatric exam: Anxious - Skin Skin Exam: Normal Color, Warm Results - Vital Signs Recent Vital Signs: Last Vital Signs Temp 98.3 F 02/14/18 09:27 Pulse 59 L 02/14/18 09:27 Resp 17 02/14/18 10:53 BP 155/87 H 02/14/18 09:27 Pulse Ox 98 02/14/18 09:27 - Labs Result Diagrams: 02/14/18 03:53 02/14/18 03:53 Labs: Laboratory Results - last 24 hr 02/14/18 02/14/18 02/14/18 03:53 03:53 03:56 WBC 9.8 RBC 4.40 Hgb 13.8 Hct 40.7 MCV 92.6 MCH 31.4 H MCHC 33.9 RDW 13.5 Plt Count 263 MPV 7.4 Neut % (Auto) 64.0 Lymph % (Auto) 27.9 [place] % (Auto) 6.5 Eos % (Auto) 0.9 Baso % (Auto) 0.7 Neut # (Auto) 6.2 Lymph # (Auto) 2.7 [place] # (Auto) 0.6 Eos # (Auto) 0.1 Baso # (Auto) 0.1 Sodium 143 Potassium 3.5 L Chloride 108 H Carbon Dioxide 21 L Anion Gap 18 BUN 20 H Creatinine 0.8 Est GFR ( Amer) > 60 Est GFR (Non-Af Amer) > 60 Random Glucose 99 Calcium 8.9 Total Bilirubin 0.8 AST 21 ALT 15 Alkaline Phosphatase 46 Total Protein 7.2 Albumin 4.0 Globulin 3.2 Albumin/Globulin Ratio 1.3 Lipase 132 Stool Occult Blood Negative Assessment & Plan - Assessment and Plan (Free Text) Assessment: 37 y/o F admitted with abd pain found to have poss enteritis/ileus Hx of chronic pain and opioid dependance. C/w IV abx Avoid Bentyl C/W Zofran PRN Replace potassium(3.5) Advance to liquid diet Avoid short acting opioids Tylenol #3 PRN for pain C/W gabapentin Supportive measures
[2018-02-14] MEDS ORDERED: Acetaminophen-Codeine 300/30 mg Tab PO STA (14:42)
[2018-02-14 16:31] LABS: ALB/GLOB RATIO 1.2 (1.0-2.1); ALBUMIN 3.3 g/dL (3.5-5.0); ALT/SGPT 18 U/L (9-52); AST/SGOT 20 U/L (14-36); BLOOD UREA NITROGEN 17 mg/dl (7-17); CALCIUM 8.5 mg/dL (8.4-10.2); GFR AFRICAN-AMERICAN > 60; GFR NON-AFRICAN AMERICAN > 60
[2018-02-14] MEDS ORDERED: Morphine 4 MG/ML VIAL IVP STA (17:13)
[2018-02-14] MEDS ORDERED: diaZEpam 10 mg/2 ml Inj IVP PRN (18:20)
--- NOTE | 2018-02-14 20:45 | CP.PCM.CON ---
History of Present Illness - History of Present Illness History of Present Illness: Pain Management: Called to evaluate this patient with chronic pain followed by Dr. Will Barrera ( pain management) in [place] secondary to cervical fusion C5-C6 in 2016 and lumbar disc herniations. Pt received a [place] 2.[address] Barrera. She takes the following at home: 1. Neurontin 600mg tid 2. Valium 5mg qHS 3. Motrin 800mg tid prn 4. Zubsolv 5.7-1.4 one daily (Pt. self d/janiya 10days ago saying it causes stomach upset and she wants to avoid dependency) Pt came to ER yesterday and then again today for abdominal pain secondary to either ileus or gastroenterits which she states is exacerbating her low back pain and sciatica. She received Morphine 4mg and benadryl 25mg in ER with relief at 7am and Morphine 2mg at 17:15. Pt denies fecal or urinary incontinence or decreased motor strength. PE is unremarkable. Patient feels well now but wants to have adequate pain control for the night. Recommended to take narcotics only if needed secondary to her possible ileus. Recommendations: 1. Morphine 4mg IV prn x 1 2. Benadryl 25mg IV prn x 1 3. Follow up with GI consult tomorrow Thank you, Jp Perez Past Patient History - Infectious Disease Hx of Infectious Diseases: None - Tetanus Immunizations Tetanus Immunization: Unknown - Past Medical History & Family History Past Medical History?: Yes - Past Social History Smoking Status: Never Smoked - CARDIAC Hx Cardiac Disorders: Yes Hx Congestive Heart Failure: No Hx Hypercholesterolemia: No Hx Hypertension: Yes - PULMONARY Hx Respiratory Disorders: Yes Hx Asthma: Yes (Seasonal) Hx Chronic Obstructive Pulmonary Disease (COPD): No - NEUROLOGICAL Hx Neurological Disorder: Yes Hx Migraine: Yes Hx Seizures: No - HEENT Hx HEENT Problems: No - RENAL Hx Chronic Kidney Disease: No - ENDOCRINE/METABOLIC Hx Endocrine Disorders: Yes Hx Hypothyroidism: Yes - HEMATOLOGICAL/ONCOLOGICAL Hx Blood Disorders: No Hx Human Immunodeficiency Virus (HIV): No - INTEGUMENTARY Hx Dermatological Problems: No - MUSCULOSKELETAL/RHEUMATOLOGICAL Hx Musculoskeletal Disorders: Yes Hx Arthritis: No Hx Back Pain: Yes Hx Falls: Yes Hx Fractures: Yes (left foot with metal plates) Hx Rheumatoid Arthritis: No - GASTROINTESTINAL Hx Gastrointestinal Disorders: No - GENITOURINARY/GYNECOLOGICAL Hx Genitourinary Disorders: No Hx Sexually Transmitted Disorders: No - PSYCHIATRIC Hx Psychophysiologic Disorder: No Hx Substance Use: No - SURGICAL HISTORY Hx Surgeries: Yes Hx Tubal Ligation: Yes (2010) Other/Comment: Cervical spine diskectomy&fusion 12/2015 - ANESTHESIA Hx Anesthesia: Yes Hx Anesthesia Reactions: No Hx Malignant Hyperthermia: No Meds Allergies/Adverse Reactions: Allergies Allergy/AdvReac Type Severity Reaction Status Date / Time clarithromycin [From Biaxin] Allergy NAUSEA Verified 02/14/18 01:37 Penicillins Allergy RASH Verified 02/14/18 01:37 sumatriptan [From Imitrex] AdvReac High bp Verified 02/14/18 01:37 sumatriptan succinate AdvReac high bp Verified 02/14/18 01:37 [From Imitrex] - Medications Medications: Current Medications Acetaminophen/Codeine Phosphate (Tylenol/Codeine 300 Mg/30 Mg) 1 tab PO Q6 PRN PRN Reason: Pain, severe (8-10) Last Admin: 02/14/18 11:59 Dose: 1 tab Diazepam (Valium) 5 mg IVP HS PRN PRN Reason: Insomnia Gabapentin (Neurontin) 600 mg PO TID [facility] Last Admin: 02/14/18 17:09 Dose: Not Given Home Med (Buprenorphine Hcl/Naloxone Hcl [Zubsolv 5.7-1.4 Mg Tablet Sl]) 1 tab PO DAILY [facility] Dextrose/Lactated Ringer's (Dextrose 5%/Lactated Ringer's) 1,000 mls @ 100 mls/ hr IV .Q10H [facility] Stop: 02/15/18 08:10 Last Admin: 02/14/18 18:17 Dose: Not Given Ciprofloxacin (Cipro 400mg/200ml Dsw) 400 mg in 200 mls @ 200 mls/hr IVPB Q12 CONSTANCE PRN Reason: Protocol Metronidazole (Flagyl 500mg/100ml Ns) 100 mls @ 100 mls/hr IVPB Q8 CONSTANCE PRN Reason: Protocol Ondansetron HCl (Zofran Inj) 4 mg IVP Q6 [facility] Pantoprazole Sodium (Protonix Inj) 40 mg IVP DAILY [facility] Last Admin: 02/14/18 09:40 Dose: 40 mg Results - Vital Signs Recent Vital Signs: Last Vital Signs Temp 98.1 F 02/14/18 15:28 Pulse 68 02/14/18 15:28 Resp 19 02/14/18 15:28 BP 107/72 02/14/18 15:28 Pulse Ox 99 02/14/18 15:28 - Labs Result Diagrams: 02/14/18 03:53 02/14/18 15:12 Labs: Laboratory Results - last 24 hr 02/14/18 02/14/18 02/14/18 03:53 03:53 03:56 WBC 9.8 RBC 4.40 Hgb 13.8 Hct 40.7 MCV 92.6 MCH 31.4 H MCHC 33.9 RDW 13.5 Plt Count 263 MPV 7.4 Neut % (Auto) 64.0 Lymph % (Auto) 27.9 [place] % (Auto) 6.5 Eos % (Auto) 0.9 Baso % (Auto) 0.7 Neut # (Auto) 6.2 Lymph # (Auto) 2.7 [place] # (Auto) 0.6 Eos # (Auto) 0.1 Baso # (Auto) 0.1 Sodium 143 Potassium 3.5 L Chloride 108 H Carbon Dioxide 21 L Anion Gap 18 BUN 20 H Creatinine 0.8 Est GFR ( Amer) > 60 Est GFR (Non-Af Amer) > 60 Random Glucose 99 Calcium 8.9 Total Bilirubin 0.8 AST 21 ALT 15 Alkaline Phosphatase 46 Total Protein 7.2 Albumin 4.0 Globulin 3.2 Albumin/Globulin Ratio 1.3 Lipase 132 Stool Occult Blood Negative 02/14/18 15:12 WBC RBC Hgb Hct MCV MCH MCHC RDW Plt Count MPV Neut % (Auto) Lymph % (Auto) [place] % (Auto) Eos % (Auto) Baso % (Auto) Neut # (Auto) Lymph # (Auto) [place] # (Auto) Eos # (Auto) Baso # (Auto) Sodium 142 Potassium 4.0 Chloride 110 H Carbon Dioxide 22 Anion Gap 14 BUN 17 Creatinine 0.7 Est GFR ( Amer) > 60 Est GFR (Non-Af Amer) > 60 Random Glucose 88 Calcium 8.5 Total Bilirubin 0.4 AST 20 ALT 18 Alkaline Phosphatase 33 L D Total Protein 6.2 L Albumin 3.3 L Globulin 2.9 Albumin/Globulin Ratio 1.2 Lipase Stool Occult Blood
[2018-02-14] MEDS: metroNIDAZOLE 500mg/100ml NS 100 ML IVPB SCH (21:03)
[2018-02-14] MEDS: Ciprofloxacin 400mg/200ml D5W 400 MG/200 ML BAG IVPB SCH (21:09)
[2018-02-14] MEDS: DiphenhydrAMINE 50 mg/ml Inj IVP PRN (22:18)
[2018-02-15] MEDS: metroNIDAZOLE 500mg/100ml NS 100 ML IVPB SCH (01:54)
[2018-02-15] MEDS: Morphine 4 MG/ML VIAL IVP PRN ×3 (02:20→12:36)
[2018-02-15] MEDS: DiphenhydrAMINE 50 mg/ml Inj IVP PRN ×2 (04:21→10:24)
[2018-02-15] MEDS: Dextrose 5%/Lactated Ringer's 1,000 ML IV SCH (04:22)
[2018-02-15] MEDS ORDERED: metroNIDAZOLE 500mg/100ml NS 100 ML IVPB SCH (05:00)
[2018-02-15 08:07] LABS: HEMOGLOBIN 12.2 g/dL (12.0-16.0); MEAN CELL VOLUME 94.5 fl (81.0-99.0); MEAN CORPUSCULAR HEMOGLOBIN 31.4 pg (27.0-31.0); MEAN CORPUSCULAR HGB CONC 33.3 g/dL (33.0-37.0); RBC 3.88 Mil/uL (3.80-5.20); RED CELL DISTRIBUTION WIDTH 13.8 % (11.5-14.5); WHITE BLOOD COUNT 7.6 K/uL (4.8-10.8)
[2018-02-15] MEDS: Ciprofloxacin 400mg/200ml D5W 400 MG/200 ML BAG IVPB SCH (08:17)
[2018-02-15 08:28] LABS: ALT/SGPT 20 U/L (9-52); AST/SGOT 17 U/L (14-36); BLOOD UREA NITROGEN 11 mg/dl (7-17); GFR AFRICAN-AMERICAN > 60; GFR NON-AFRICAN AMERICAN > 60
[2018-02-15] MEDS ORDERED: NALOXONE HCL PO SCH (09:00)
[2018-02-15] MEDS ORDERED: BUPRENORPHINE HCL PO SCH (09:00)
[2018-02-15 09:02] VITALS: BP 139/87; PULSE 53; RESP 18; TEMP 98.1; O2SAT 98
--- NOTE | 2018-02-17 00:38 | CP.PCM.DIS ---
Provider - Provider Date of Admission: 02/14/18 06:59 Attending physician: Jacobo Rob MD Primary care physician: Renaldo Kiran JD, MD [facility] Course - Lab Results Lab Results: Most Recent Lab Values WBC 7.6 K/uL (4.8-10.8) 02/15/18 05:30 RBC 3.88 Mil/uL (3.80-5.20) 02/15/18 05:30 Hgb 12.2 g/dL (12.0-16.0) 02/15/18 05:30 Hct 36.7 % (34.0-47.0) 02/15/18 05:30 MCV 94.5 fl (81.0-99.0) 02/15/18 05:30 MCH 31.4 pg (27.0-31.0) H 02/15/18 05:30 MCHC 33.3 g/dL (33.0-37.0) 02/15/18 05:30 RDW 13.8 % (11.5-14.5) 02/15/18 05:30 Plt Count 224 K/uL (130-400) 02/15/18 05:30 MPV 7.4 fl (7.2-11.7) 02/14/18 03:53 Neut % (Auto) 64.0 % (50.0-75.0) 02/14/18 03:53 Lymph % (Auto) 27.9 % (20.0-40.0) 02/14/18 03:53 [place] % (Auto) 6.5 % (0.0-10.0) 02/14/18 03:53 Eos % (Auto) 0.9 % (0.0-4.0) 02/14/18 03:53 Baso % (Auto) 0.7 % (0.0-2.0) 02/14/18 03:53 Neut # (Auto) 6.2 K/uL (1.8-7.0) 02/14/18 03:53 Lymph # (Auto) 2.7 K/uL (1.0-4.3) 02/14/18 03:53 [place] # (Auto) 0.6 K/uL (0.0-0.8) 02/14/18 03:53 Eos # (Auto) 0.1 K/uL (0.0-0.7) 02/14/18 03:53 Baso # (Auto) 0.1 K/uL (0.0-0.2) 02/14/18 03:53 Sodium 142 mmol/l (132-148) 02/15/18 05:30 Potassium 3.6 MMOL/L (3.6-5.0) 02/15/18 05:30 Chloride 109 mmol/L (98-107) H 02/15/18 05:30 Carbon Dioxide 21 mmol/L (22-30) L 02/15/18 05:30 Anion Gap 16 (10-20) 02/15/18 05:30 BUN 11 mg/dl (7-17) 02/15/18 05:30 Creatinine 0.6 mg/dl (0.7-1.2) L 02/15/18 05:30 Est GFR ( Amer) > 60 02/15/18 05:30 Est GFR (Non-Af Amer) > 60 02/15/18 05:30 Random Glucose 89 mg/dL (65-105) 02/15/18 05:30 Calcium 8.0 mg/dL (8.4-10.2) L 02/15/18 05:30 Total Bilirubin 0.4 mg/dl (0.2-1.3) 02/15/18 05:30 AST 17 U/L (14-36) 02/15/18 05:30 ALT 20 U/L (9-52) 02/15/18 05:30 Alkaline Phosphatase 30 U/L (38-126) L 02/15/18 05:30 Total Protein 5.9 G/DL (6.3-8.2) L 02/15/18 05:30 Albumin 3.0 g/dL (3.5-5.0) L 02/15/18 05:30 Globulin 2.9 gm/dL (2.2-3.9) 02/15/18 05:30 Albumin/Globulin Ratio 1.0 (1.0-2.1) 02/15/18 05:30 Lipase 132 U/L (23-300) 02/14/18 03:53 Stool Occult Blood Negative (NEGATIVE) 02/14/18 03:56 - Hospital Course Hospital Course: This is a 37 y/o female admitted for abd pain. Noted to have mild colitis and gastritis and also complained of chronic pain. Discharge Exam - Head Exam Head Exam: ATRAUMATIC, NORMOCEPHALIC Discharge Plan - Follow Up Plan Condition: FAIR Disposition: HOME/ ROUTINE Instructions: Inflammatory Bowel Disease (DC) Referrals: Jacobo Rob MD [Staff Provider] -
== END 2018-02-15 13:00 | disposition home or self-care (01) ==
LOC: H.ER 01:27 → H.ERHOLD 06:59 → H.MEDSURG1 09:15
PROVIDERS: ADMIT Family Medicine; ATTEND Family Medicine
DX: K52.9 Noninfective gastroenteritis and colitis, unspecified (principal); G89.29 Other chronic pain; F11.20 Opioid dependence, uncomplicated; E03.9 Hypothyroidism, unspecified; K29.70 Gastritis, unspecified, without bleeding; M54.41 Lumbago with sciatica, right side; M79.7 Fibromyalgia; I10 Essential (primary) hypertension; J45.909 Unspecified asthma, uncomplicated; G43.909 Migraine, unspecified, not intractable, without status migrainosus; F17.210 Nicotine dependence, cigarettes, uncomplicated; Z88.6 Allergy status to analgesic agent; Z88.0 Allergy status to penicillin
CPT/HCPCS: 36415; 74177; 80053; 81025; 83690; 85025; 85027; 96361; 96365; 96366; 96367; 96375; 96376; 99285; C9113; G0328; G0378; J0744; J1200; J1885; J2270; J2405; J2765; J7040; J7120; Q9967

== ENCOUNTER 2018-03-27 14:44 | Emergency (ER) | payer OTHER ==
[2018-03-27 14:44] VITALS: BMI 22.6
[2018-03-27 14:59] VITALS: O2SAT 100
[2018-03-27] MEDS ORDERED: DiphenhydrAMINE 50 mg/ml Inj IVP STA (15:38)
--- NOTE | 2018-03-27 15:41 | CARD ---
APPROVED REPORT EKG Measurement Heart [id number] ID [id number] <Conclusion> Normal sinus rhythm Normal ECG
--- NOTE | 2018-03-27 15:54 | ED PDOC ---
HPI: Headache Time Seen by Provider: 03/27/18 15:13 Chief Complaint (Nursing): Headache Chief Complaint (Provider): headache History Per: Patient History/Exam Limitations: no limitations Onset/Duration Of Symptoms: Days (x3), Persistent Current Symptoms Are (Timing): Still Present Quality: "Pain" Associated Symptoms: Photophobia, Nausea, Other (phonophobia ). denies: Blurred Vision, Vomiting Additional Complaint(s): Mary Anne Matos is a 37 year old female, with a past medical history of chronic abdominal and back pain, HTN and migraines, who presents to the emergency department complaining of headache associated with nausea, photophobia and phonophobia onset for x3 days. Patient is reporting it as a migraine but persistent and severe with no relief of 800mg Motrin taken at home. Patient has been monitoring her blood pressure for the last x3 days and believes it has been elevated. She reports chills but denies any fever, vomiting , motor/sensory weakness, blurry vision, chest pain and shortness of breath. No further medical complaints. PMD: Jacobo Francisco Past Medical History Reviewed: Historical Data, Nursing Documentation, Vital Signs Vital Signs: Last Vital Signs Temp 98.0 F 03/27/18 14:58 Pulse 78 03/27/18 14:58 Resp 16 03/27/18 14:58 BP 142/103 H 03/27/18 14:58 Pulse Ox 100 03/27/18 14:58 - Medical History PMH: Asthma (Seasonal), Back Problems, Fibromyalgia, Fractures (left foot with metal plates), HTN, Hypothyroidism, Migraine, Chronic Pain (neck, back, right leg) Denies: Arthritis, CHF, COPD, Diabetes, Hepatitis, HIV, Hypercholesterolemia , Chronic Kidney Disease, Rheumatoid Arthritis, Seizures, Sexually Transmitted Disease - Surgical History Surgical History: Back Surgery (Cervical spine Diskectomy and fusion C5-6) - Family History Family History: States: Unknown Family Hx, NM (maternal grandparents had NM in their 60s), Hypertension - Social History Current smoker - smoking cessation education provided: Yes Alcohol: Social Drugs: Denies - Immunization History Hx Tetanus Toxoid Vaccination: No Hx Influenza Vaccination: No Hx Pneumococcal Vaccination: No - Home Medications Home Medications: Ambulatory Orders Medication Instructions Recorded Buprenorphine HCl/Naloxone HCl 1 tab PO DAILY 03/30/18 [Zubsolv 5.7-1.4 mg Tablet Sl] Gabapentin [Neurontin] 600 mg PO TID 02/14/18 Ibuprofen [Motrin Tab] 800 mg PO TID PRN 02/14/18 diaZEpam [Valium] 5 mg PO HS 02/14/18 Ondansetron ODT [Zofran ODT] 1 odt PO Q6 PRN #20 odt 03/27/18 - Allergies Allergies/Adverse Reactions: Allergies Allergy/AdvReac Type Severity Reaction Status Date / Time clarithromycin [From Biaxin] Allergy NAUSEA Verified 03/27/18 14:57 Penicillins Allergy RASH Verified 03/27/18 14:57 sumatriptan [From Imitrex] AdvReac High bp Verified 03/27/18 14:57 sumatriptan succinate AdvReac high bp Verified 03/27/18 14:57 [From Imitrex] Review of Systems ROS Statement: Except As Marked, All Systems Reviewed And Found Negative Constitutional: Positive for: Chills. Negative for: Fever Eyes: Positive for: Other (photophobia). Negative for: Vision Change ENT: Positive for: Other (phonophobia) Cardiovascular: Negative for: Chest Pain Respiratory: Negative for: Shortness of Breath Gastrointestinal: Positive for: Nausea. Negative for: Vomiting Musculoskeletal: Positive for: Other (spasms to her neck and legs) Neurological: Positive for: Headache. Negative for: Weakness Physical Exam - Reviewed Nursing Documentation Reviewed: Yes Vital Signs Reviewed: Yes - Physical Exam Appears: Positive for: Well, Non-toxic, In Acute Distress (mild painful) Head Exam: Positive for: ATRAUMATIC, NORMOCEPHALIC Skin: Positive for: Normal Color, Warm, Dry Eye Exam: Positive for: Normal appearance, EOMI, PERRL ENT: Negative for: Pharyngeal Erythema, Tonsillar Exudate Neck: Positive for: Painless ROM, Trachea Midline Cardiovascular/Chest: Positive for: Regular Rate, Rhythm. Negative for: Murmur Respiratory: Positive for: Normal Breath Sounds. Negative for: Respiratory Distress Gastrointestinal/Abdominal: Positive for: Soft, Tenderness (lower abdominal tenderness to palpation). Negative for: Mass, Distended, Guarding, Rebound Back: Positive for: Normal Inspection. Negative for: Vertebral Tenderness Extremity: Positive for: Normal ROM (upper and lower extremities). Negative for : Deformity, Swelling Lymphatic: Negative for: Adenopathy Neurologic/Psych: Positive for: Alert, Oriented (x3). Negative for: Motor/ Sensory Deficits, Aphasia (normal speech ) - Laboratory Results Result Diagrams: 03/27/18 17:10 03/27/18 16:20 - ECG O2 Sat by Pulse Oximetry: 100 (RA) Pulse Ox Interpretation: Normal Medical Decision Making Medical Decision Making: Initial Impression: Migraines and hypertension. Differential includes but not limited to intractable migraine, hypertensive encephalopathy, acute on chronic pain syndrome, tension headache, electrolyte abnormality Initial Plan: --Head w/o contrast [CT] --B-Type Natriuretic Peptide --CMP --Drug screen, urine --Magnesium --Phosphorus --TSH --Urine dipstick --Urine --CBC w/ differential --Tylenol 325mg ta 975mg PO --Benadryl 25 mg IVP --Toradol 30 mg IVP --Reglan 10 mg IVP --Reevaluation Accession No. : [id number] Patient Name / ID : ELIJAH CARLTON / [id number] Exam Date : 03/27/2018 17:00:08 ( Approved ) Study Comment : Sex / Age : F / 37Y Creator : Grey Peacock MD Dictator : Grey Peacock MD Fiber Locking Supervisor : Fuel Injection Servicer : Grey Peacock MD Approver2 : Report Date : 03/27/2018 17:16:20 My Comment : PROCEDURE: CT HEAD WITHOUT CONTRAST. HISTORY: severe headache hypertension COMPARISON: None available. TECHNIQUE: Axial computed tomography images were obtained through the head/brain without intravenous contrast. Radiation dose: Total exam DLP = 802 mGy-cm. This CT exam was performed using one or more of the following dose reduction techniques: Automated exposure control, adjustment of the mA and/or kV according to patient size, and/or use of iterative reconstruction technique. FINDINGS: HEMORRHAGE: No intracranial hemorrhage. BRAIN: No mass effect or edema. No atrophy or chronic microvascular ischemic changes. VENTRICLES: Unremarkable. No hydrocephalus. CALVARIUM: Unremarkable. PARANASAL SINUSES: Unremarkable as visualized. No significant inflammatory changes. MASTOID AIR CELLS: Unremarkable as visualized. No inflammatory changes. OTHER FINDINGS: None. IMPRESSION: No acute findings Labs demonstrate cocaine in UDS. No emergently significant lab abnormalities. 530p On reevaluation pt reports feeling better. Informed of lab findings, including cocaine in UDS. Believes she may have been slipped something on the weekend while she was drinking because she felt "weird" after shots. Advised caution with drinking due to her history of being on chronic pain medications, and due to dangers of recreational drug use. Pt stable for discharge with follow up sherlyn with PMD. She reports she will follow up with Dr Francisco. Scribe Attestation: Documented by Sam Mitchell, acting as a scribe for Tana Moreno MD Provider Scribe Attestation: All medical record entries made by the Scribe were at my direction and personally dictated by me. I have reviewed the chart and agree that the record accurately reflects my personal performance of the history, physical exam, medical decision making, and the department course for this patient. I have also personally directed, reviewed, and agree with the discharge instructions and disposition. Disposition - Clinical Impression Clinical Impression: Migraine, Acute headache Counseled Patient/Family Regarding: Studies Performed, Diagnosis, Need For Followup - Disposition Referrals: Jacobo Francisco MD [Staff Provider] - Disposition: Routine/Home Disposition Time: 17:32 Condition: IMPROVED Additional Instructions: CONTINUE YOUR MEDICATIONS PRESCRIBED FOLLOW UP WITH DR FRANCISCO SOON POSSIBLE FOR FURTHER MANAGEMENT. Prescriptions: Ondansetron ODT [Zofran ODT] 1 odt PO Q6 PRN #20 odt PRN Reason: Nausea/Vomiting Instructions: Chronic Pain (DC), Migraine Headache (DC), Acute Headache (ED)
[2018-03-27] MEDS ORDERED: DiphenhydrAMINE 50 mg/ml Inj ONE (16:07)
[2018-03-27 16:55] LABS: ALB/GLOB RATIO 1.3 (1.0-2.1); ALBUMIN 4.2 g/dL (3.5-5.0); ALT/SGPT 27 U/L (9-52); AST/SGOT 31 U/L (14-36); BLOOD UREA NITROGEN 10 mg/dl (7-17); CALCIUM 9.7 mg/dL (8.4-10.2); GFR AFRICAN-AMERICAN > 60; GFR NON-AFRICAN AMERICAN > 60
[2018-03-27 17:00] LABS: BASO % 0.5 % (0.0-2.0); EOS # 0.1 K/uL (0.0-0.7); EOS % 1.6 % (0.0-4.0); HEMOGLOBIN 13.4 g/dL (12.0-16.0); LYMPH # 1.9 K/uL (1.0-4.3); LYMPH % 31.1 % (20.0-40.0); MEAN CELL VOLUME 95.4 fl (81.0-99.0); MEAN CORPUSCULAR HEMOGLOBIN 31.6 pg (27.0-31.0); MEAN CORPUSCULAR HGB CONC 33.1 g/dL (33.0-37.0); MEAN PLATELET VOLUME 7.4 fl (7.2-11.7); MONO # 0.5 K/uL (0.0-0.8); MONO % 8.1 % (0.0-10.0); NEUT # 3.6 K/uL (1.8-7.0); NEUT % 58.7 % (50.0-75.0); NRBC % 0.1 % (0.0-0.0); RBC 4.26 Mil/uL (3.80-5.20); RED CELL DISTRIBUTION WIDTH 15.1 % (11.5-14.5); WHITE BLOOD COUNT 6.2 K/uL (4.8-10.8)
[2018-03-27 17:05] LABS: OPIATES, UR NEGATIVE (NEGATIVE)
--- NOTE | 2018-03-27 17:17 | CT ---
PROCEDURE: CT HEAD WITHOUT CONTRAST. HISTORY: severe headache hypertension COMPARISON: None available. TECHNIQUE: Axial computed tomography images were obtained through the head/brain without intravenous contrast. Radiation dose: Total exam DLP = 802 mGy-cm. This CT exam was performed using one or more of the following dose reduction techniques: Automated exposure control, adjustment of the mA and/or kV according to patient size, and/or use of iterative reconstruction technique. FINDINGS: HEMORRHAGE: No intracranial hemorrhage. BRAIN: No mass effect or edema. No atrophy or chronic microvascular ischemic changes. VENTRICLES: Unremarkable. No hydrocephalus. CALVARIUM: Unremarkable. PARANASAL SINUSES: Unremarkable as visualized. No significant inflammatory changes. MASTOID AIR CELLS: Unremarkable as visualized. No inflammatory changes. OTHER FINDINGS: None. IMPRESSION: No acute findings
[2018-03-27 17:20] LABS: BARBITURATES, UR NEGATIVE (NEGATIVE); BENZODIAZEPINES, UR POSITIVE (NEGATIVE); PHENCYCLIDINE, UR NEGATIVE (NEGATIVE)
[2018-03-27 18:06] VITALS: BP 116/75; PULSE 65; RESP 18; TEMP 98.4
== END 2018-03-27 18:08 | disposition home or self-care (01) ==
LOC: H.ER 14:44
DX: G43.909 Migraine, unspecified, not intractable, without status migrainosus (principal); E03.9 Hypothyroidism, unspecified; I10 Essential (primary) hypertension; M79.7 Fibromyalgia; Z88.0 Allergy status to penicillin
CPT/HCPCS: 70450; 80053; 80324; 80345; 80346; 80349; 80353; 80358; 80361; 81025; 83735; 83880; 83992; 84100; 84443; 85025; 93005; 96374; 96375; 99283; J1200; J1885; J2765

== ENCOUNTER 2018-03-30 12:33 | Emergency (ER) | payer OTHER ==
[2018-03-30 12:49] VITALS: O2SAT 100
[2018-03-30 12:50] VITALS: BMI 23.7
[2018-03-30] MEDS ORDERED: Promethazine 25 MG in Sodium Chloride 0.9% 50 ML IVPB STA (13:15)
[2018-03-30] MEDS ORDERED: Sodium Chloride 0.9% 1,000 ML IV STA (13:15)
[2018-03-30] MEDS ORDERED: DiphenhydrAMINE 50 mg/ml Inj IVP STA (13:15)
--- NOTE | 2018-03-30 13:37 | ED PDOC ---
HPI: Headache Time Seen by Provider: 03/30/18 12:58 Chief Complaint (Nursing): Headache Chief Complaint (Provider): KEITA History Per: Patient History/Exam Limitations: no limitations Additional Complaint(s): Pt reports L sided KEITA X 1 week, associated with photophobia, not relieved with Fiorcet at home. Was evaluated in this ED on 03/27/18 for same (CT head negative ). Denies fever, nausea, vomiting, visual changes, paresthesias, weakness. Past Medical History Reviewed: Nursing Documentation, Vital Signs Vital Signs: Last Vital Signs Temp 98.1 F 03/30/18 12:47 Pulse 82 03/30/18 12:47 Resp 17 03/30/18 12:47 BP 141/104 H 03/30/18 12:47 Pulse Ox 100 03/30/18 12:47 - Medical History PMH: Asthma (Seasonal), Back Problems, Fibromyalgia, Fractures (left foot with metal plates), HTN, Hypothyroidism, Migraine, Chronic Pain (neck, back, right leg) Denies: Arthritis, CHF, COPD, Diabetes, Hepatitis, HIV, Hypercholesterolemia , Chronic Kidney Disease, Rheumatoid Arthritis, Seizures, Sexually Transmitted Disease - Surgical History Surgical History: Back Surgery (Cervical spine Diskectomy and fusion C5-6) - Family History Family History: States: Unknown Family Hx, GA (maternal grandparents had GA in their 60s), Hypertension - Social History Current smoker - smoking cessation education provided: No - Immunization History Hx Tetanus Toxoid Vaccination: No Hx Influenza Vaccination: No Hx Pneumococcal Vaccination: No - Home Medications Home Medications: Ambulatory Orders Medication Instructions Recorded Buprenorphine HCl/Naloxone HCl 1 tab PO DAILY 02/14/18 [Zubsolv 5.7-1.4 mg Tablet Sl] Gabapentin [Neurontin] 600 mg PO TID 02/14/18 Ibuprofen [Motrin Tab] 800 mg PO TID PRN 02/14/18 diaZEpam [Valium] 5 mg PO HS 02/14/18 Ondansetron ODT [Zofran ODT] 1 odt PO Q6 PRN #20 odt 03/27/18 - Allergies Allergies/Adverse Reactions: Allergies Allergy/AdvReac Type Severity Reaction Status Date / Time clarithromycin [From Biaxin] Allergy NAUSEA Verified 03/27/18 14:57 Penicillins Allergy RASH Verified 03/27/18 14:57 sumatriptan [From Imitrex] AdvReac High bp Verified 03/27/18 14:57 sumatriptan succinate AdvReac high bp Verified 03/27/18 14:57 [From Imitrex] Review of Systems Constitutional: Negative for: Fever, Chills Eyes: Positive for: Pain. Negative for: Vision Change, Redness Cardiovascular: Negative for: Chest Pain, Palpitations Respiratory: Negative for: Cough, Shortness of Breath Gastrointestinal: Negative for: Nausea, Vomiting, Abdominal Pain, Diarrhea Genitourinary Female: Negative for: Dysuria, Hematuria Musculoskeletal: Negative for: Neck Pain, Back Pain Skin: Negative for: Rash, Lesions Neurological: Positive for: Headache. Negative for: Weakness, Numbness, Incoordination, Change in Speech, Confusion, Seizures, Altered Mental Status, Dizziness Physical Exam - Reviewed Nursing Documentation Reviewed: Yes Vital Signs Reviewed: Yes - Physical Exam Appears: Positive for: Well, No Acute Distress Head Exam: Positive for: ATRAUMATIC, NORMAL INSPECTION (TTP L scalp adjacent to temporal artery, no cord appreciated) Skin: Positive for: Normal Color, Warm, Dry Eye Exam: Positive for: Normal appearance, EOMI, PERRL Cardiovascular/Chest: Positive for: Regular Rate, Rhythm Respiratory: Positive for: Normal Breath Sounds Extremity: Positive for: Normal ROM Neurologic/Psych: Positive for: Alert, 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 Negative for: Motor/Sensory Deficits, Aphasia, Facial Droop - ECG O2 Sat by Pulse Oximetry: 100 Medical Decision Making Medical Decision Makin yo with recurrent KEITA. - Benadryl - Phenergan - IVF CT HEAD (03/27/18): Accession No. : [id number] Patient Name / ID : ELIJAH Gutierres / [id number] Exam Date : 03/27/2018 17:00:08 ( Approved ) Study Comment : Sex / Age : F / 37Y Creator : Grey Peacock MD Dictator : Grey Peacock MD Teaching Dietitian : Sprinkler Inspector : Grey Peacock MD Approver2 : Report Date : 03/27/2018 17:16:20 My Comment : PROCEDURE: CT HEAD WITHOUT CONTRAST. HISTORY: severe headache hypertension COMPARISON: None available. TECHNIQUE: Axial computed tomography images were obtained through the head/brain without intravenous contrast. Radiation dose: Total exam DLP = 802 mGy-cm. This CT exam was performed using one or more of the following dose reduction techniques: Automated exposure control, adjustment of the mA and/or kV according to patient size, and/or use of iterative reconstruction technique. FINDINGS: HEMORRHAGE: No intracranial hemorrhage. BRAIN: No mass effect or edema. No atrophy or chronic microvascular ischemic changes. VENTRICLES: Unremarkable. No hydrocephalus. CALVARIUM: Unremarkable. PARANASAL SINUSES: Unremarkable as visualized. No significant inflammatory changes. MASTOID AIR CELLS: Unremarkable as visualized. No inflammatory changes. OTHER FINDINGS: None. IMPRESSION: No acute findings Disposition - Disposition Forms: Fonemesh (Norwegian)
[2018-03-30 16:31] VITALS: BP 110/71; PULSE 68; RESP 16; TEMP 98
== END 2018-03-30 16:30 | disposition home or self-care (01) ==
LOC: H.ER 12:33
DX: R51 Headache (principal); E03.9 Hypothyroidism, unspecified; G89.29 Other chronic pain; I10 Essential (primary) hypertension; J45.909 Unspecified asthma, uncomplicated; M79.7 Fibromyalgia; Z88.0 Allergy status to penicillin
CPT/HCPCS: 85651; 96365; 96375; 99285; J1200; J1885; J2550; J7040